=== PATIENT | male | born 1965 | race Caucasian/White ===

== ENCOUNTER → 2020-02-28 08:50 | Outpatient (BNVA) | payer OTHER, SELFPAY | PROVIDERS: Referring Provider Family Medicine; Visit Provider Registered Nurse | DX: J44.9 Chronic obstructive pulmonary disease, unspecified (principal); R73.9 Hyperglycemia, unspecified | CPT/HCPCS: 80053; 80061; 83721; 85025 ==

== ENCOUNTER 2020-04-12 08:35 | Outpatient (CLI) | payer OTHER, SELFPAY ==
--- NOTE | 2020-04-12 08:45 | XR_ITS ---
WS: [id number] EXAM: Chest: PA and lateral DATE OF EXAMINATION: 04/12/2020, 0939 hours COMPARISON: None. HISTORY: Patient is 54 years old with shortness of breath. History of coronary artery disease with 4 stents.. FINDINGS: The heart size is normal. The mediastinal contours are normal. Pulmonary vascularity is within norm al limits. Chronic lung changes seen. Small amount of apical capping and fibrosis in both upper lung zones with what appears to be slight bleb formation. Coarse markings are seen within both lungs. Lung s are clear of consolidation. Calcified granuloma right upper lobe. No effusion, or pneumothorax. Bernardino ne density is decreased. XR/XR chest 2V* [id number] IMPRESSION: CHRONIC LUNG CHANGES. NO ACUTE PULMONARY DISEASE.
[2020-04-12 09:10] VITALS: BMI 38.4
--- NOTE | 2020-04-12 09:49 | ECG_ITS ---
[facility] Test Date: 2020-04-12 Pat Name: Madi Alvarez Department: Room: Gender: Male Rosin Barrel Filler: : 1965 Requested By: Tri Arauz Order Number: [id number] Nolan MD: Tri Arauz M.D. Interpretive Statements NAME OF STUDY: EXERCISE SESTAMIBI STRESS TEST INDICATION: Coronary Artery Disease; Chest Pain Baseline blood pressure of 140/84 mmHg and heart rate of 80 bpm and oxygen saturation of 95%. EKG showed normal sinus rhythm, normal axis with normal ST-T wave changes. The patient exercised for 6 minutes 01 seconds on a standard Lance protocol. Patient attained a maximum heart rate of 144 beats per minute(85% of the maximum predicted heart rate) with a blood pressure at the peak exercise of 242/98 mm Hg and oxygen saturation of 90%. The EKG at the peak exercise revealed sinus tachycardia with no significant ST-T wave changes. Patient did not have any chest pain or any significant arrhythmias with the exercise. The procedure was terminated due to fatifue and SOB. Blood pressure at the end of the recovery phase was 137/84 mm Hg with a heart rate of 104 beats per minute and oxygen saturation of 93%. CONCLUSION: 1. Normal EKG response to treadmill exercise. 2. No exercise-induced chest pain or cardiac arrhythmia. 3. Baseline hypertension with hypertensive response to exercise. 4. Good exercise tolerance, attained a maximum of 7 METs.Maximum VO2 of 24.5 ml/kg/min. Electronically Signed On 04-12-2020 19:23:35 CDT by Tri Arauz M.D. [id number]
--- NOTE | 2020-04-12 09:49 | NMCV_ITS ---
NM noman perf SPECT r/s* [id number] Madi Alvarez Age: 54 Gender: M : 1965 Exam Date: 04/12/2020 10:05 Ordering Phys: Tri Arauz MD ([email or web address]) Technologist: MOLLY Mortensen Exam Location: [facility] Indications: CORONARY ARTERY DISEASE STRESS TEST Please see separate stress test report in [facility] for full findings IMAGE PROTOCOL Rest/Stress 1 Radiopharmaceutical Dose (mCi) Administration Site Administered by Rest: Tc-99m 10.7 IV MOLLY Tran Sestamibi Stress:Tc-99m 32.4 IV MOLLY Tran Sestamibi Rest: 12-Apr-2020 60 Discovery 630 Stress: 12-Apr-2020 15 Discovery 630 Radiopharmaceutical was injected at 85 % maximum heart rate. Images obtained in supine and prone position. SPECT RESULTS Technical Quality: Excellent Raw Data Analysis: Normal Image Corrections: No attenuation or motion correction applied Summed Stress Score: 0 Summed Rest Score: 0 Summed Difference Score: 0 PERFUSION FINDINGS Small sized perfusion abnormality of mild severity of mid to apical inferior rios with improved tracer uptake on stress images. This is likely suggestive of attenuation artifact. FUNCTIONAL RESULTS (calculated via Gated SPECT) Stress Image LV EF (%): 71 Stress EDV (mL):93 TID: 0.9 Stress ESV (mL):27 FUNCTIONAL FINDINGS: The left ventricle is normal in size. Transient Ischemia Dilatation of 0.9. There is normal left ventricular systolic function. The left ventricular ejection fraction is normal with a value of 71%. There is normal left ventricular wall thickening. Normal end diastolic and end systolic volumes. IMPRESSIONS 1. Myocardial perfusion imaging is normal. 2. Overall left ventricular systolic function is normal without regional wall motion abnormalities. 3. The left ventricular ejection fraction is normal with a value of 71%. 4. No prior similar studies to compare. Tri Arauz MD (Electronically Signed) Final Date: 12 April 2020 23:15 S
--- NOTE | 2020-04-12 10:44 | SUR.PREOP ---
Patient reports no pain or discomfort prior to the start of the procedure.
[2020-04-12 11:34] VITALS: BP 137/84; PULSE 104
--- NOTE | 2020-04-12 15:00 | USCV_ITS ---
Madi Alvarez Age: 54 Gender: M : 1965 Exam Date: 04/12/2020 09:16 Ordering Phys: Tri Arauz MD ([email or web address]) Technologist: Bessy Miranda Exam Location: [facility] [place] Indication: Chest pain BP: / HR: 82 Rhythm: Sinus Technical Quality: Adequate MEASUREMENTS (Male / Female) Normal Values 2D ECHO LV Diastolic Diameter PLAX 4.8 cm 4.2 - 5.9 / 3.9 - 5.3 cm LV Systolic Diameter PLAX 2.9 cm LV Chamber Size 3.2 cm IVS Diastolic Thickness 0.9 cm 0.6 - 1.0 / 0.6 - 0.9 cm IVS Systolic Thickness 2.1 cm LVPW Diastolic Thickness 1.2 cm 0.6 - 1.0 / 0.6 - 0.9 cm LVPW Systolic Thickness 1.6 cm RV Chamber Size 3.0 cm LVOT Diameter 2.0 cm LV Ejection Fraction 2D Teich 69.3 % LV Ejection Fraction MOD 2C 59.6 % LV Ejection Fraction 2C AL 62.1 % LA Diameter 3.9 cm LA Width 2.8 cm LA Height 3.5 cm RA Width 2.6 cm RA Height 3.1 cm Aorta at Sinotubular Diameter 3.1 cm M-MODE LV Diastolic Diameter MM 4.9 cm 4.2 - 5.9 / 3.9 - 5.3 cm LV Systolic Diameter MM 2.9 cm LV Ejection Fraction MM Teich 72.1 % IVS Diastolic Thickness MM 1.1 cm 0.6 - 1.0 / 0.6 - 0.9 cm IVS Systolic Thickness MM 1.6 cm LVPW Diastolic Thickness MM 1.4 cm 0.6 - 1.0 / 0.6 - 0.9 cm LVPW Systolic Thickness MM 1.6 cm RV Diastolic Diameter MM 1.6 cm Aortic Annulus Diameter 3.4 cm LA Ao Ratio MM 1.1 MV E Point Septal Separation 0.6 cm DOPPLER AV Peak Velocity 113.0 cm/s LVOT Peak Velocity 85.0 cm/s AV Area Cont Eq vti 3.1 cm squared AV Area Cont Eq pk 2.4 cm squared MV Area PHT 5.0 cm squared Mitral E to A Ratio 1.0 MV E' Velocity 8.0 cm/s Mitral E to MV E' Ratio 9.7 Mitral E to LV E' Lateral Ratio 10.0 Mitral E to LV E' Septal Ratio 9.5 TR Peak Velocity 100.9 cm/s TR Peak Gradient 4.1 mmHg TR Mean Velocity 62.8 cm/s TR Mean Gradient 1.8 mmHg TR Velocity Time Integral 21.2 cm TV Peak E Velocity 63.0 cm/s Right Atrial Pressure 3.0 mmHg Pulmonary Artery Systolic Pressu 7.1 mmHg PV Peak Velocity 54.0 cm/s RV Acceleration Time 0.2 s RV Ejection Time 0.3 s RV AcT/ET 0.5 FINDINGS Left Ventricle Normal left ventricular size, systolic function and wall thickness, with no regional wall motion abnormalities. Left ventricular ejection fraction is estimated at 60 %. Normal diastolic function. Right Ventricle Normal right ventricular size and systolic function. Right ventricular systolic pressure 7.1 mmHg. Right Atrium Normal right atrial size. Left Atrium Normal left atrial size. Mitral Valve Structurally normal mitral valve. No mitral valve stenosis. Trace mitral valve regurgitation. Aortic Valve Structurally normal trileaflet aortic valve. No aortic valve stenosis. No aortic valve regurgitation. Tricuspid Valve Structurally normal tricuspid valve. Trace tricuspid valve regurgitation. Pulmonic Valve Pulmonic valve not well visualized. Trace pulmonary valve regurgitation. Pericardium No pericardial effusion. Aorta Normal size aortic root and proximal ascending aorta. CONCLUSIONS 1. Normal left ventricular size, systolic function and wall thickness, with no regional wall motion abnormalities. Left ventricular ejection fraction is estimated at 60 %. Normal diastolic function. 2. Normal pulmonary artery pressure. 3. No significant valvular abnormality. 4. No prior similar studies to compare. Tri Arauz MD (Electronically Signed) Final Date: 12 April 2020 22:42 S
== END 2020-04-12 08:36 | disposition home or self-care (01) ==
LOC: RAD 08:47 → CARD 09:09 → CDL 09:10
PROVIDERS: PCP Internal Medicine Cardiovascular Disease; Visit Provider Internal Medicine Cardiovascular Disease
DX: I25.10 Atherosclerotic heart disease of native coronary artery without angina pectoris (principal); R06.02 Shortness of breath; R07.9 Chest pain, unspecified
CPT/HCPCS: 71046; 78452; 93017; 93306; A9500

== ENCOUNTER 2020-04-24 10:48 | Outpatient (CLI) | payer OTHER, SELFPAY ==
--- NOTE | 2020-04-24 15:15 | CT_ITS ---
WS: [id number] CT HEAD TECHNIQUE: Noncontrast CT of the head obtained from the skullbase to the vertex. CLINICAL INFORMATION: persistent, worsening headache and syncope COMPARISON: None. DLP: 992.[address] scans at [facility] use at least one of these dose optimization techniques: automat ed exposure control; mA and/or kV adjustment per patient size (includes targeted exams where dose is matched to clinical indication); or iterative reconstruction. FINDINGS: No evidence of intracranial hemorrhage or mass effect. Ventricular system and basal cisterns are hugo nt. Mild small vessel changes with moderate parenchymal volume loss. Chronic lacunar infarct right ba oneil ganglia. No extra-axial fluid collections. No evidence of mass or mass effect. Normal vega-white differentiation. Paranasal sinuses and mastoid air cells are well aerated. .Normal visualized soft tissues. CT/CT head wo con* [id number] IMPRESSION: 1. No evidence of intracranial hemorrhage or mass effect. 2. Mild small vessel changes. Moderate parenchymal volume loss. 3. Chronic lacunar infarct right basal ganglia. 4. No acute intracranial findings.
== END 2020-04-24 10:49 | disposition home or self-care (01) ==
PROVIDERS: PCP Internal Medicine Cardiovascular Disease; Visit Provider Registered Nurse
DX: R51 Headache (principal); R55 Syncope and collapse; I63.81 Other cerebral infarction due to occlusion or stenosis of small artery
CPT/HCPCS: 70450

== ENCOUNTER → 2020-05-15 08:24 | Outpatient (BNVA) | payer OTHER, SELFPAY | PROVIDERS: PCP Internal Medicine Cardiovascular Disease; Referring Provider Registered Nurse; Visit Provider Specialist | DX: R55 Syncope and collapse (principal); G43.711 Chronic migraine without aura, intractable, with status migrainosus; R05 Cough; F17.210 Nicotine dependence, cigarettes, uncomplicated | CPT/HCPCS: 99204 ==

== ENCOUNTER 2020-05-29 12:22 | Outpatient (CLI) | payer OTHER, SELFPAY ==
--- NOTE | 2020-05-29 13:00 | CT_ITS ---
WS: [id number] CT scan of the chest without IV contrast, additional two-dimensional coronal and sagittal reconstruct ion was performed. 05/29/2020 Clinical Data: COPD, emphysema Comparison: CT chest, 10/05/2018. DLP: 992.[address] scans at [facility] use at least one of these dose optimization techniques: automat ed exposure control; mA and/or kV adjustment per patient size (includes targeted exams where dose is matched to clinical indication); or iterative reconstruction. Findings: Bilateral upper lobe emphysematous blebs are seen. No nodules, masses or effusions are seen. The heart size is normal with no pericardial effusion. Card iac stents are in position. The pulmonary arterial system and thoracic aorta demonstrate no abnormali ties or dilatations. The trachea bifurcates normally into the bronchi. There is no axillary or signif icant mediastinal adenopathy. Right hilar adenopathy has not changed. The upper abdomen shows fatty infiltration of the liver and hepatomegaly unchanged. The remainder of the upper abdomen is unremarkable. CT/CT chest wo con [id number] Impression: 1. No change in bilateral upper lobe emphysematous blebs. 2. No change in right hilar adenopathy.
== END 2020-05-29 12:23 | disposition home or self-care (01) ==
LOC: RADWPI 12:26
PROVIDERS: PCP Internal Medicine Cardiovascular Disease; Visit Provider Internal Medicine Cardiovascular Disease
DX: J44.9 Chronic obstructive pulmonary disease, unspecified (principal); R55 Syncope and collapse; R05 Cough; F17.210 Nicotine dependence, cigarettes, uncomplicated
CPT/HCPCS: 71250; 95816

== ENCOUNTER → 2020-06-08 14:42 | Outpatient (BNVA) | payer OTHER, SELFPAY | PROVIDERS: PCP Internal Medicine Cardiovascular Disease; Visit Provider Internal Medicine Cardiovascular Disease | DX: Z11.59 Encounter for screening for other viral diseases (principal) | CPT/HCPCS: 87635 ==

== ENCOUNTER 2020-06-13 08:00 | Outpatient (CLI) | payer OTHER, SELFPAY ==
[2020-06-13 09:48] VITALS: BP 153/93
--- NOTE | 2020-06-13 12:55 | PFTS_ITS ---
Date of Study:06/13/20 Date of Dictation: 06/15/2020 MECHANICS: Forced vital capacity (FVC) is normal Forced expiratory volume in one second (FEV1) is reduced FEV1/FVC is reduced No significant response to bronchodilators FLOW VOLUME LOOP: Scooping of expiratory limb suggestive of small airway obstruction . LUNG VOLUMES: Total lung capacity (TLC) is normal. Residual volume (RV) is increased indicating air trapping DIFFUSING CAPACITY FOR CARBON MONOXIDE: moderate gas transfer defect . INTERPRETATION: The pulmonary function tests are consistent with obstructive ventilatory defect and moderate christa transfer defect. Lung volumes suggestive of air trapping. please correlate clinically. MTDD
== END 2020-06-13 08:01 | disposition home or self-care (01) ==
LOC: RT 08:01
PROVIDERS: PCP Internal Medicine Cardiovascular Disease; Visit Provider Internal Medicine Cardiovascular Disease
DX: J44.9 Chronic obstructive pulmonary disease, unspecified (principal); R06.00 Dyspnea, unspecified
CPT/HCPCS: 94060; 94618; 94726; 94729; J7611

== ENCOUNTER 2020-06-16 12:17 | Outpatient (CLI) | payer OTHER, SELFPAY ==
--- NOTE | 2020-06-16 12:45 | USCV_ITS ---
Madi Alvarez Age: 54 Gender: M : 1965 Exam Date: 06/16/2020 12:19 Ordering Phys: Tri Arauz MD ([email or web address]) Technologist: Franklyn Stout Exam Location: [facility] [place] Indication: PAD ULCER RIGHT LEFT Brachial 130.00 mmHg Brachial 131.00 mmHg Pressure (mmHg) Waveform Pressure (mmHg) Waveform 156.00 RESEARCH ANIMAL ATTENDANT 154.00 136.00 DPA 129.00 1.10 Ankle/Brachial Index 1.10 0.86 Post-Exercise Ankle Brachial Index 0.85 103.00 Pre-Exercise Toe Pressure 101.00 0.79 Pre-Exercise Toe/Brachial Index 0.77 FINDINGS Normal resting ABIs bilaterally Slightly diminished post exercise ABIs bilaterally Normal resting TBI's bilaterally CONCLUSIONS Slightly diminished post exercise ABIs bilaterally, suggestive of mild peripheral artery disease. Dr Sarah Maldonado MD FAC (Electronically Signed) Final Date: 16 June 2020 16:20 S
== END 2020-06-16 12:18 | disposition home or self-care (01) ==
LOC: RAD 12:25
PROVIDERS: PCP Internal Medicine Cardiovascular Disease; Visit Provider Internal Medicine Cardiovascular Disease
DX: I73.9 Peripheral vascular disease, unspecified (principal)
CPT/HCPCS: 93923

== ENCOUNTER 2020-06-18 23:16 | Emergency (ER) | payer OTHER, SELFPAY ==
[2020-06-18 23:31] VITALS: BP 132/87; PULSE 117; RESP 26; O2SAT 94; BMI 38.4
[2020-06-19] VITALS (8 sets, daily range): BP systolic 117–160; BP diastolic 68–94; PULSE 92–122; RESP 18–26; TEMP 36.6; O2SAT 88–94
--- NOTE | 2020-06-19 00:05 | XR_ITS ---
WS: [id number] PORTABLE CHEST HISTORY: r sided flank pain COMPARISON: 04/12/2020 Mild pulmonary hyperexpansion with emphysema. Benign granuloma RIGHT upper lobe. Linear subsegmental atelectasis at the RIGHT lung base. No pleural effusion or pneumothorax. Cardiac size: Normal. Mediastinum/Aorta: Normal mediastinum. No osseous abnormality seen. XR/XR chest 1V portable [id number] IMPRESSION: Chronic emphysema.
--- NOTE | 2020-06-19 00:07 | CTR_ITS ---
PROCEDURE INFORMATION: Exam: CT Angiography Chest With Contrast Exam date and time: 06/19/2020 12:32 AM Age: 54 years old Clinical indication: Abdominal pain; Right-sided chest pain; Prior surgery; Surgery date: 6+ months; Surgery type: Kidney repair; Patient HX: C/O R flank pain after twisting motion TECHNIQUE: Imaging protocol: Computed tomographic angiography of the chest with intravenous contrast. 3D rendering (Not supervised by radiologist): MIP and/or 3D reconstructed images were created by the technologist. Radiation optimization: All CT scans at this facility use at least one of these dose optimization techniques: automated exposure control; mA and/or kV adjustment per patient size (includes targeted exams where dose is matched to clinical indication); or iterative reconstruction. Contrast material: OMNI 350; Contrast volume: 95 ml; Contrast route: INTRAVENOUS (IV); COMPARISON: CT chest wo con [id number] 05/29/2020 12:43 PM RADIATION DOSE METRICS: Total DLP (mGy-cm): 2099.39 FINDINGS: Pulmonary arteries: The pulmonary arteries are adequately opacified for evaluation to the subsegmental level. There is no filling defect to suggest embolism. Aorta: The aorta is unremarkable. There is no aneurysm. Lungs: There is a benign calcified granuloma in the right upper lobe. There is moderate centrilobular and paraseptal emphysema. No pulmonary consolidation. Pleural space: There is no pleural effusion or pneumothorax. Heart: Heart size is normal. There is moderate coronary artery calcification. There is no pericardial effusion. Lymph nodes: There is no mediastinal or hilar lymphadenopathy. Bones/joints: Bones are unremarkable. Soft tissues: The extrathoracic soft tissues are unremarkable. IMPRESSION: 1. No pulmonary embolism. 2. No acute pulmonary findings. There is moderate severity centrilobular and paraseptal emphysema. PROCEDURE INFORMATION: Exam: CT Abdomen And Pelvis With Contrast Exam date and time: 06/19/2020 12:32 AM Age: 54 years old Clinical indication: Abdominal pain; Right-sided chest pain; Prior surgery; Surgery date: 6+ months; Surgery type: Kidney repair; Patient HX: C/O R flank pain after twisting motion TECHNIQUE: Imaging protocol: Computed tomography of the abdomen and pelvis with intravenous contrast. Radiation optimization: All CT scans at this facility use at least one of these dose optimization techniques: automated exposure control; mA and/or kV adjustment per patient size (includes targeted exams where dose is matched to clinical indication); or iterative reconstruction. Contrast material: OMNI 350; Contrast volume: 95 ml; Contrast route: INTRAVENOUS (IV); COMPARISON: CT chest con [id number] 05/29/2020 12:43 PM RADIATION DOSE METRICS: Total DLP (mGy-cm): 2099.39 FINDINGS: Liver: There is diffuse low-attenuation of the liver relative to the spleen consistent with fatty infiltration. There is no focal liver abnormality. Gallbladder and bile ducts: The gallbladder is normal. There is no biliary dilation. Pancreas: The pancreas is unremarkable. Spleen: The spleen is unremarkable. Adrenals: There is hypertrophy of the left adrenal gland. The right adrenal gland is unremarkable. 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 The lower pole lies partially anterior to Gerota fascia. There is no abnormal enhancement. No hydronephrosis or stones. The left kidney and ureter are unremarkable. Stomach and bowel: The stomach is unremarkable. The small bowel is nondilated. The colon is unremarkable. Appendix: The appendix is normal. Intraperitoneal space: There is no free air or significant intraperitoneal free fluid. Vasculature: There is mild aortic atherosclerotic disease. There is focal saccular ectasia of the distal aorta measuring up to 2.6 cm. No fanny aneurysm. Lymph nodes: There is no lymphadenopathy in the retroperitoneum, mesentery, pelvis or inguinal regions. Urinary bladder: The urinary bladder is unremarkable. Reproductive: The prostate and seminal vesicles are unremarkable. Bones/joints: Unremarkable. No acute fracture. Soft tissues: The abdominal wall is intact. CT/CT angio chest w abd pel w con IMPRESSION: 1. No definite acute findings. 2. 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 There is no sign of inflammation or infarction. This finding is likely related to prior surgery and is of uncertain clinical significance. Prior abdominal imaging is not available at this time, but would be helpful if it could be obtained. 3. Incidental findings above. Radiation Dose CTDIVOL = (mGy): DLP = 2099.39~2099.39 (mGy-cm)
[2020-06-19] MEDS: ondansetron 2 mg/ML SDV 2 mL 4 MG IVP (00:25)
[2020-06-19] MEDS: HYDROmorphone 1 mg/mL INJ 1 mL IVP ×2 (00:26→05:31)
[2020-06-19 00:36] LABS: Basophils # 0.1 10^3/uL (0.0-0.1); Eosinophils # 0.3 10^3/uL (0.0-0.8); Eosinophils % 3.5 %; Hematocrit 48.2 % (42.0-52.0); Hemoglobin 15.8 g/dL (11.7-16.6); Lymphocytes # 2.4 10^3/uL (0.8-4.8); Lymphocytes % 26.4 %; Mean Corpuscular HGB Conc 32.8 g/dL (30.0-36.0); Mean Corpuscular Hemoglobin 33.1 pg (28.0-34.0); Mean Platelet Volume 9.9 fL (7.4-10.4); Monocytes # 0.7 10^3/uL (0.2-0.9); Monocytes % 8.2 %; Neutrophils # 5.34 10^3/uL (1.8-7.7); Nucleated Red Blood Cells % 0 %; Platelet Count 252 10^3/cmm (130-400); Red Blood Count 4.77 10^6/uL (4.1-5.3); Red Cell Distribution Width 12.6 % (12.1-15.1); White Blood Count 8.9 10^3/uL (4.0-10.0)
[2020-06-19 00:40] LABS: D Dimer 2.82 ug/mIFEU (0-0.59)
[2020-06-19 00:42] LABS: Alanine Aminotransferase 85 U/L (0-41); Albumin Level 4.2 g/dL (3.5-5.2); Alkaline Phosphatase 94 IU/L (40-130); Aspartate Amino Transferase 45 U/L (0-40); Blood Urea Nitrogen 9 mg/dL (6-20); Calcium 10.1 mg/dL (8.5-10.5); Carbon Dioxide 25 mmol/L (22-29); Chloride 99 mmol/L (98-107); Creatine Phosphokinase 231 U/L (39-308); Globulin 3.5 g/dL (1.3-4.6); Glomerular Filtration Rate 78.5 mL/min (90-130); Glucose 166 mg/dL (65-115); Lactate (Lactic Acid level) 3.1 mmol/L (0.5-2.2); Osmolality Calculated 282 mOsm/kg (285-295); Sodium 135 mmol/L (136-145); Total Bilirubin 0.2 mg/dL (0.15-1.2); Total Protein 7.7 g/dL (6.6-8.7)
[2020-06-19] MEDS: iohexol 350 mg/mL 100 mL Btl IV (00:46)
[2020-06-19 00:48] LABS: Anion Gap 15.5 (5-19); Potassium 4.5 mmol/L (3.5-5.1)
--- NOTE | 2020-06-19 01:19 | W.ED.BACK ---
HPI - Back Pain/Injury General: Chief Complaint: Back Pain/Injury Stated Complaint: back pain Time Seen by Provider: 06/18/20 23:44 History of Present Illness: HPI Narrative: 54-year-old gentleman presents with right-sided back and right flank pain worsening over the past couple of days. He has had a cough as well. No fever. He has a history of COPD. He was tested for Covid last week, and it was negative. He notes the pain became acutely worse this evening, and he was not able to control it at home. Pertinent past history: prior back pain Onset (ago): day(s) Timing: constant and progressively worsening Severity: moderate Associated symptoms: Reports nausea; Deny abdominal pain, dysuria, fever(s), hematuria or vomiting Review of Systems Const: Denies: fever(s) Eyes: Denies: change in vision ENMT: Denies: odynophagia or sinus pain Card: Denies: chest pain, palpitations or irregular heart rhythm Resp: Reports: dyspnea and non-productive cough; Denies: productive cough or wheezing GI: Reports: nausea; Denies: abdominal pain or vomiting : Denies: difficulty urinating, dysuria or hematuria Musc: Reports: back pain; Denies: neck pain or joint warmth Skin/Breast: Denies: rash or erythema Neuro: Denies: headache(s), dizziness or vertigo Psych: Denies: anxiety PFSH ED PFSH: Medical History (Updated 06/19/20 @ 05:31 by Quique Mason DO) COPD (chronic obstructive pulmonary disease) Emphysema of lung Essential hypertension Past heart attack Surgical History History of kidney surgery Hx of heart artery stent Family History Other COPD (chronic obstructive pulmonary disease) Diabetes Heart problem Social History (Updated 06/01/20 @ 10:11 by Sai Mota LPN) Smoking and tobacco status: current every day smoker cigarettes Packs smoked per day: 2 Years cigarettes smoked: 40 Quit status (tobacco): considering quitting Second hand smoke exposure: Yes Smoking risk assessment/counseling performed?: Yes Alcohol intake: former Desire information about alcohol rehabilitation?: No Counseling given: No Desire information about substance/drug rehabilitation?: No Counseling given: No Lives independently: Yes Household members: significant other and children Housing: House Marital status: Life Partner service: No Current occupational status: employed and previously employed 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 History of recent travel: No Current gender identity: Female Physical Exam Const: GENERAL APPEARANCE: well developed and ill appearing ORIENTATION/CONSCIOUSNESS: Yes oriented to person, Yes oriented to place and Yes oriented to time HENMT: COMMON NORMALS: normocephalic, external ears normal and Normal external nose present HEAD & SCALP: normocephalic FACE & SINUS: normal facial exam NOSE: Normal external nose present and No nasal discharge present EXTERNAL EAR: Yes external ears normal Eye: COMMON NORMALS: Equal, round and reactive pupils present, EOMs intact bilaterally and conjunctivae normal EYELID: eyelids normal CONJUNCTIVA: Yes conjunctivae normal PUPIL: Yes Equal, round and reactive pupils present Neck/C-Spine: GENERAL: No tracheal deviation Chest: COMMONS NORMALS: normal inspection of the chest CHEST: No tenderness Resp: COMMON NORMALS: clear to auscultation bilaterally EFFORT & INSPECTION: No tachypneic, No respiratory distress, No retractions, No uses accessory muscles and No tracheal deviation AUSCULTATION: clear to auscultation bilaterally, no rhonchi, no wheezes and lung sounds not diminished Cardio: COMMON NORMALS: regular rate and regular rhythm RATE: regular rate RHYTHM: regular rhythm HEART SOUNDS: no murmurs PERIPHERAL PULSES: radial pulses present GI: INSPECTION: No abdominal distension AUSCULTATION: No Hyperactive bowel sounds present and No Hypoactive bowel sounds present PALPATION: No Guarding due to palpation present (GI) and No Rigid due to palpation PERCUSSION: no dullness to percussion and no tympanic to percussion : BLADDER/KIDNEY EXAM: Yes CVA tenderness on the right Back/Pelvis: GENERAL BACK: Yes CVA tenderness Neuro: SENSORIUM/ORIENTATION: Yes oriented to person, Yes oriented to place and Yes oriented to time Psych: COMMON NORMALS: mental status grossly normal Skin: COMMON NORMALS: no rashes or lesions noted GENERAL SKIN EXAM: no rashes or lesions noted Course Vital Signs: Vital signs: Vital Signs Pulse Rate 98 06/19/20 05:00 Respiratory Rate 20 H 06/19/20 05:00 Blood Pressure 117/83 06/19/20 05:00 Pulse Oximetry 93 06/19/20 05:00 MDM - Back Pain/Injury MDM Narrative: Medical decision making narrative: 54-year-old male with flank pain. On further interview, found out that he had a lacerated kidney on the right side a couple of years ago and had surgery. His D-dimer was significantly elevated. EKG was a normal sinus rhythm without acute ST change. Troponin was negative. His pain was reproducible. Because of his history, and his elevated D-dimer, CTA of the chest was ordered with follow-through with abdomen and pelvis. There were no acute findings on either. His pain may be musculoskeletal. There is 1/9 rib fracture on the right, but it does appear old on CT. We will treat his pain, close outpatient follow-up. His urinalysis was also negative. Lab Data: Labs: Lab Results 06/19/20 06/19/20 06/19/20 Range/Units 00:15 00:15 00:15 WBC 8.9 (4.0-10.0) 10^3/ uL RBC 4.77 (4.1-5.3) 10^6/u L Hgb 15.8 (11.7-16.6) g/dL Hct 48.2 (42.0-52.0) % MCV 101.0 H (80-94) fL MCH 33.1 (28.0-34.0) pg MCHC 32.8 (30.0-36.0) g/dL RDW 12.6 (12.1-15.1) % Plt Count 252 (130-400) 10^3/c mm MPV 9.9 (7.4-10.4) fL Neut % (Auto) 60.0 % Lymph % (Auto) 26.4 % [place] % (Auto) 8.2 % Eos % (Auto) 3.5 % Baso % (Auto) 1.0 % Neut # (Auto) 5.34 (1.8-7.7) 10^3/u L Lymph # (Auto) 2.4 (0.8-4.8) 10^3/u L [place] # (Auto) 0.7 (0.2-0.9) 10^3/u L Eos # (Auto) 0.3 (0.0-0.8) 10^3/u L Baso # (Auto) 0.1 (0.0-0.1) 10^3/u L Nucleated RBC % (a uto) 0 % Nucleated RBCs # 0.0 /100WBC D-Dimer 2.82 H (0-0.59) ug/mIFE U Sodium 135 L (136-145) mmol/L Potassium 4.5 (3.5-5.1) mmol/L Chloride 99 (98-107) mmol/L Carbon Dioxide 25 (22-29) mmol/L Anion Gap 15.5 (5-19) BUN 9 (6-20) mg/dL Creatinine 1.0 (0.7-1.2) mg/dL GFR Calculation 78.5 L (90-130) mL/min Glucose 166 H (65-115) mg/dL Calculated Osmolal ity 282 L (285-295) mOsm/k g Lactate (0.5-2.2) mmol/L Calcium 10.1 (8.5-10.5) mg/dL Total Bilirubin 0.2 (0.15-1.2) mg/dL AST 45 H (0-40) U/L ALT 85 H (0-41) U/L Alkaline Phosphata se 94 (40-130) IU/L Creatine Kinase 231 (39-308) U/L Troponin T Gen 5 n g/L (0-15) ng/L C-Reactive Protein (0.0-4.9) mg/L Total Protein 7.7 (6.6-8.7) g/dL Albumin 4.2 (3.5-5.2) g/dL Globulin 3.5 (1.3-4.6) g/dL Urine Color (Yellow) Urine Appearance (CLEAR) Urine pH (5-7) Ur Specific Gravit y (1.005-1.030) Urine Protein (Negative) Urine Glucose (UA) (Normal) Urine Ketones (Negative) Urine Blood (Negative) Urine Nitrate (Negative) Urine Bilirubin (Negative) Urine Urobilinogen (Negative) mg/dL Ur Leukocyte Yesica ase (Negative) Amorphous Sediment 06/19/20 06/19/20 06/19/20 Range/Units 00:15 00:15 04:45 WBC (4.0-10.0) 10^3/ uL RBC (4.1-5.3) 10^6/u L Hgb (11.7-16.6) g/dL Hct (42.0-52.0) % MCV (80-94) fL MCH (28.0-34.0) pg MCHC (30.0-36.0) g/dL RDW (12.1-15.1) % Plt Count (130-400) 10^3/c mm MPV (7.4-10.4) fL Neut % (Auto) % Lymph % (Auto) % [place] % (Auto) % Eos % (Auto) % Baso % (Auto) % Neut # (Auto) (1.8-7.7) 10^3/u L Lymph # (Auto) (0.8-4.8) 10^3/u L [place] # (Auto) (0.2-0.9) 10^3/u L Eos # (Auto) (0.0-0.8) 10^3/u L Baso # (Auto) (0.0-0.1) 10^3/u L Nucleated RBC % (a uto) % Nucleated RBCs # /100WBC D-Dimer (0-0.59) ug/mIFE U Sodium (136-145) mmol/L Potassium (3.5-5.1) mmol/L Chloride (98-107) mmol/L Carbon Dioxide (22-29) mmol/L Anion Gap (5-19) BUN (6-20) mg/dL Creatinine (0.7-1.2) mg/dL GFR Calculation (90-130) mL/min Glucose (65-115) mg/dL Calculated Osmolal ity (285-295) mOsm/k g Lactate 3.1 H (0.5-2.2) mmol/L Calcium (8.5-10.5) mg/dL Total Bilirubin (0.15-1.2) mg/dL AST (0-40) U/L ALT (0-41) U/L Alkaline Phosphata se (40-130) IU/L Creatine Kinase (39-308) U/L Troponin T Gen 5 n g/L 15 (0-15) ng/L C-Reactive Protein (0.0-4.9) mg/L Total Protein (6.6-8.7) g/dL Albumin (3.5-5.2) g/dL Globulin (1.3-4.6) g/dL Urine Color Yellow (Yellow) Urine Appearance Clear (CLEAR) Urine pH 5 (5-7) Ur Specific Gravit y 1.015 (1.005-1.030) Urine Protein Trace (Negative) Urine Glucose (UA) Trace H (Normal) Urine Ketones Negative (Negative) Urine Blood Neg (Negative) Urine Nitrate Negative (Negative) Urine Bilirubin Neg (Negative) Urine Urobilinogen Norm (Negative) mg/dL Ur Leukocyte Yesica ase Negative (Negative) Amorphous Sediment Not Reportable Discharge Plan Discharge Patient Disposition: Home Clinical Impression: Acute flank pain Condition: Stable Prescriptions: New Percocet 7.5-325 mg tablet 1 tab PO Q6H PRN (Reason: pain) Qty: 10 RF: 0 No Action losartan 50 mg tablet 50 mg PO DAILY Qty: 30 RF: 3 pantoprazole 40 mg tablet,delayed release (DR/EC) 40 mg PO DAILY Qty: 30 RF: 1 metoprolol tartrate 25 mg tablet 25 mg PO BID Qty: 60 RF: 3 amitriptyline 25 mg tablet 25 mg PO DAILY Qty: 30 RF: 3 Aimovig Autoinjector 140 mg/mL auto-injector 140 mg SUBCUT .MONTHLY Qty: 1 RF: 5 budesonide-formoterol [Symbicort] 160-4.5 mcg/actuation HFA aerosol inhaler 2 puff INHALATION BID Qty: 10.2 RF: 3 montelukast 10 mg tablet 10 mg PO DAILY Qty: 90 RF: 3 Spiriva with HandiHaler 18 mcg capsule, w/inhalation device 2 cap INHALATION DAILY Qty: 1 RF: 3 albuterol sulfate [Ventolin HFA] 90 mcg/actuation HFA aerosol inhaler 2 puff INHALATION Q6H PRN (Reason: bronchospasm) Qty: 6.7 RF: 3 ipratropium-albuterol 0.5 mg-3 mg(2.5 mg base)/3 mL solution for nebulization 3 ml INHALATION Q4H PRN (Reason: wheezing) Qty: 15 RF: 3 prednisone 20 mg tablet 40 mg PO DAILY Qty: 10 RF: 0 budesonide [Pulmicort] 0.5 mg/2 mL suspension for nebulization 0.25 mg INHALATION BID Qty: 10 RF: 3 levofloxacin 500 mg tablet 500 mg PO DAILY Qty: 5 RF: 0 ibuprofen [Advil Liqui-Gel] 200 mg capsule 200 mg PO Q6H PRNRF: 0 nitroglycerin [Nitrostat] 0.4 mg tablet, sublingual 0.4 mg SUBLINGUAL Q5M PRNRF: 0 gabapentin 100 mg capsule 100 mg PO DAILY Qty: 90 RF: 0 clopidogrel [Plavix] 75 mg tablet 75 mg PO DAILY Qty: 90 RF: 0 atorvastatin 80 mg tablet 80 mg PO DAILY Qty: 90 RF: 0 Discharge Orders: Discharge Order (Routine); Ordered 06/19/20 Ordered By: Quique Mason Referrals: Juan Medina MD [Primary Care Provider] - 1-3 days Discharge Diet: Advance as tolerated Discharge Activity: Increase activity as tolerated Patient Instructions: Flank Pain (ED) Activity Restrictions/Additional Instructions: Return for fever greater than 100, worsening pain despite treatment, vomiting liquids or medications, other concerning symptoms. Coding Level of Care Code ED Spinning Bath Patroller for [place] Fwd Exam Comprehensive
--- NOTE | 2020-06-19 01:33 | PC.NURSE ---
placed on 2 L NC at 0105
--- NOTE | 2020-06-19 02:08 | ECG_ITS ---
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 Measurements Intervals [place] Rate: 105 P: 51 W[place]: 147 QRS: 66 QRSD: 98 T: 40 QT: 328 QTc: 434 Interpretive Statements SINUS TACHYCARDIA POSSIBLE LEFT ATRIAL ENLARGEMENT [-0.1mV P WAVE IN V1/V2] ABNORMAL RHYTHM ECG No previous ECG available for comparison Electronically Signed On 06-20-2020 7:20:36 CDT by Tri Arauz M.D. [id number]
[2020-06-19 02:29] LABS: Troponin T (5th) Once 15 ng/L (0-15)
[2020-06-19] MEDS: ketorolac 30 mg/mL INJ IVP (03:01)
[2020-06-19] MEDS: HYDROmorphone 1 mg/mL INJ 1 mL 0.5 MG IVP (03:01)
--- NOTE | 2020-06-19 03:38 | PC.NURSE ---
multiple attempts to obtain urine without success--patient refuses catheterization
--- NOTE | 2020-06-19 04:28 | PC.NURSE ---
0415 attempt to catheterize with 8 fr unsuccessful
--- NOTE | 2020-06-19 04:51 | PC.NURSE ---
Bladder scan 149 ml --16fr ugalde placed return 175 mls catheter removed-
[2020-06-19 04:58] LABS: Add Urine Microscopic? YES; Bilirubin Urine Neg (Negative); Blood Urine Neg (Negative); Glucose Urine UA Trace (Normal); Ketones Urine Negative (Negative); Leukocyte Esterase Urine Negative (Negative); Nitrate Urine Negative (Negative); Protein Urine Trace (Negative); Specific Gravity, Urine 1.015 (1.005-1.030); Urine Appearance Clear (CLEAR); Urine Color Yellow (Yellow); Urobilinogen Urine Norm (Negative); pH Urine 5 (5-7)
[2020-06-19 05:35] LABS: Add Urine Culture? No; Bacteria Urine TRACE /hpf; Mucus Urine 1+ /hpf; RBC Urine 0-4 /hpf (0-2); Squamous Epithelial Cell Urine 0-4 /hpf (0-5); WBC Urine 0-4 /hpf (0-5)
--- NOTE | 2020-06-19 05:35 | PC.NURSE ---
1 mg Dilaudid given for pain 04/03
== END 2020-06-19 05:50 | disposition home or self-care (01) ==
PROVIDERS: Emergency Provider Emergency Medicine; PCP Internal Medicine Cardiovascular Disease
DX: R10.9 Unspecified abdominal pain (principal); Z79.02 Long term (current) use of antithrombotics/antiplatelets; J43.9 Emphysema, unspecified; I10 Essential (primary) hypertension; F17.210 Nicotine dependence, cigarettes, uncomplicated
CPT/HCPCS: 12345; 71045; 71275; 74177; 80053; 81001; 82550; 83605; 84484; 85025; 85378; 86140; 93005; 96374; 96375; 96376; 99283; 99284; J1170; J1885; J2405; Q9967

== ENCOUNTER → 2020-07-12 08:10 | Outpatient (BNVA) | payer OTHER, SELFPAY | PROVIDERS: PCP Internal Medicine Cardiovascular Disease; Visit Provider Specialist | DX: G43.711 Chronic migraine without aura, intractable, with status migrainosus (principal); R05 Cough; I25.810 Atherosclerosis of coronary artery bypass graft(s) without angina pectoris; J44.9 Chronic obstructive pulmonary disease, unspecified; F17.210 Nicotine dependence, cigarettes, uncomplicated | CPT/HCPCS: 99214 ==

== ENCOUNTER → 2020-08-31 14:29 | Outpatient (BNVA) | payer OTHER, SELFPAY | PROVIDERS: PCP Internal Medicine Cardiovascular Disease; Visit Provider Registered Nurse | DX: B35.3 Tinea pedis (principal) | CPT/HCPCS: 88305 ==

== ENCOUNTER → 2020-09-05 09:46 | Outpatient (BNVA) | payer OTHER, SELFPAY | PROVIDERS: PCP Internal Medicine Cardiovascular Disease; Visit Provider Registered Nurse | DX: R81 Glycosuria (principal) | CPT/HCPCS: 80053; 83036 ==

== ENCOUNTER → 2020-09-13 09:52 | Outpatient (BNVA) | payer OTHER, SELFPAY | PROVIDERS: PCP Internal Medicine Cardiovascular Disease; Visit Provider Registered Nurse | DX: E11.9 Type 2 diabetes mellitus without complications (principal); L57.0 Actinic keratosis | CPT/HCPCS: 36416; 82962 ==

== ENCOUNTER → 2020-12-07 08:58 | Outpatient (BNVA) | payer OTHER, SELFPAY | PROVIDERS: PCP Internal Medicine Cardiovascular Disease; Visit Provider Registered Nurse | DX: I10 Essential (primary) hypertension (principal); E11.9 Type 2 diabetes mellitus without complications; E78.5 Hyperlipidemia, unspecified; I25.810 Atherosclerosis of coronary artery bypass graft(s) without angina pectoris; J44.9 Chronic obstructive pulmonary disease, unspecified; G47.33 Obstructive sleep apnea (adult) (pediatric); F17.210 Nicotine dependence, cigarettes, uncomplicated | CPT/HCPCS: 80053; 80061; 81003; 82043; 83036 ==

== ENCOUNTER 2021-04-21 03:54 | Inpatient (IN) | payer OTHER, SELFPAY ==
[2021-04-21] VITALS (45 sets, daily range): BP systolic 96–153; BP diastolic 62–103; PULSE 28–100; RESP 14–31; TEMP 36.7–37.1; O2SAT 88–99; BMI 38.4
--- NOTE | 2021-04-21 03:58 | XRR_ITS ---
PROCEDURE INFORMATION: Exam: XR Chest Exam date and time: 04/21/2021 3:58 AM Age: 55 years old Clinical indication: Chest pressure; Prior surgery; Surgery type: Coronary stent; Patient HX: Chest pain. History of prior mi and emphysema. ; Additional info: Cp TECHNIQUE: Imaging protocol: XR of the chest. Views: 1 view. COMPARISON: CR XR chest 1V portable [id number] 06/19/2020 12:31 AM FINDINGS: Lungs: Mild emphysema. Pleural spaces: Unremarkable. No pleural effusion. No pneumothorax. Heart/Mediastinum: Unremarkable. No cardiomegaly. Bones/joints: Unremarkable. XR/XR chest 1V portable [id number] IMPRESSION: 1. Mild emphysema. 2. No acute disease.
--- NOTE | 2021-04-21 03:59 | ECG_ITS ---
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 Measurements Intervals [place] Rate: 88 P: 66 NC: 151 QRS: 72 QRSD: 106 T: 67 QT: 391 QTc: 474 Interpretive Statements SINUS RHYTHM MINIMAL ST DEPRESSION [0.025+ mV ST DEPRESSION] Compared to ECG 06/19/2020 02:24:35 ST (T wave) deviation now present Sinus tachycardia no longer present Electronically Signed On 04-21-2021 22:03:58 CDT by Andrew Luong M.D. [id number]
[2021-04-21 04:32] LABS: Basophils # 0.1 10^3/uL (0.0-0.1); Basophils % 0.7 %; Eosinophils # 0.2 10^3/uL (0.0-0.8); Eosinophils % 2.7 %; Hematocrit 42.3 % (42.0-52.0); Lymphocytes # 2.3 10^3/uL (0.8-4.8); Lymphocytes % 26.7 %; Mean Corpuscular HGB Conc 33.1 g/dL (30.0-36.0); Mean Corpuscular Volume 99.8 fl (80-94); Mean Platelet Volume 10.1 fL (7.4-10.4); Monocytes # 0.7 10^3/uL (0.2-0.9); Monocytes % 8.3 %; Neutrophils # 5.35 10^3/uL (1.8-7.7); Neutrophils % 60.9 %; Nucleated Red Blood Cells % 0 %; Platelet Count 255 10^3/cmm (130-400); Red Blood Count 4.24 10^6/uL (4.1-5.3); Red Cell Distribution Width 12.5 % (12.1-15.1); White Blood Count 8.8 10^3/uL (4.0-10.0)
--- NOTE | 2021-04-21 04:34 | ED_ITS ---
HPI - Chest Pain General: Chief Complaint: Chest Pain Stated Complaint: CHEST PAIN Time Seen by Provider: 04/21/21 03:58 History of Present Illness: HPI narrative: 55-year-old male with a history of COPD and coronary disease. He notes a cough for several days. He started getting chest pain yesterday. It is worse with movement and cough. He has been wheezing. He denies fever. He is unvaccinated he states his feet have been swelling a little more than usual. MD complaint: chest pain Pertinent past history: coronary artery disease and other Onset (ago): day(s) Timing of current episode: constant and increasing Prior episodes: Yes Onset: during rest Pain location: substernal Pain radiation: back Severity: moderate Quality: heaviness and sharp Relieving factors: nothing Exacerbating factors: nothing Associated symptoms: Reports dyspnea, leg edema, nausea and vomiting; Deny abdominal pain, fever(s) or palpitations Treatment prior to arrival: aspirin and nitroglycerin Review of Systems Const: Denies: fever(s) Card: Denies: palpitations Resp: Reports: dyspnea GI: Reports: nausea and vomiting; Denies: abdominal pain PFSH ED PFSH: Medical History (Updated 04/21/21 @ 05:49 by Quique Mason DO) COPD (chronic obstructive pulmonary disease) Emphysema of lung Essential hypertension Past heart attack Surgical History History of kidney surgery Hx of heart artery stent Family History Other COPD (chronic obstructive pulmonary disease) Diabetes Heart problem Social History Smoking and tobacco status: current every day smoker cigarettes Packs smoked per day: 1.5 Years cigarettes smoked: 40 [ Other cigarette details: [id number] ] Quit status (tobacco): considering quitting Second hand smoke exposure: Yes Smoking risk assessment/counseling performed?: Yes Alcohol intake: former Desire information about substance/drug rehabilitation?: No Counseling given: No Lives independently: Yes Household members: significant other and children Housing: House Marital status: Life Partner service: No Current occupational status: previously employed 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 Pets and animals: Yes History of recent travel: No Current gender identity: Male Physical Exam Const: GENERAL APPEARANCE: in distress, anxious and ill appearing ORIENTATION/CONSCIOUSNESS: Yes awake, Yes oriented to person, Yes oriented to place and Yes oriented to time HENMT: COMMON NORMALS: normocephalic HEAD & SCALP: normocephalic Eye: COMMON NORMALS: Equal, round and reactive pupils present and EOMs intact bilaterally PUPIL: Yes Equal, round and reactive pupils present Chest: COMMONS NORMALS: normal inspection of the chest and normal inspection of the breasts CHEST: Yes tenderness Breast/axilla inspection: Yes normal inspection of the breasts Resp: EFFORT & INSPECTION: No able to speak in complete sentences, Yes tachypneic and Yes respiratory distress AUSCULTATION: abnormal I/E ratio, rhonchi and wheezes Cardio: COMMON NORMALS: regular rate, regular rhythm and Peripheral pulses 2+ throughout RATE: regular rate RHYTHM: regular rhythm PERIPHERAL PULSES: Peripheral pulses 2+ throughout GI: COMMON NORMALS: Normal to inspection, nondistended, normoactive bowel sounds present, Soft to palpation and non-tender PALPATION: Yes Soft to palpation Neuro: SENSORIUM/ORIENTATION: Yes oriented to person, Yes oriented to place and Yes oriented to time Course Consultations: Consultation #1: chu Time: 05:48 Vital Signs: Vital signs: Vital Signs Temperature 98.4 F 04/21/21 03:57 Pulse Rate 28 L 04/21/21 04:47 Respiratory Rate 24 H 04/21/21 04:47 Blood Pressure 125/79 04/21/21 04:47 Pulse Oximetry 96 04/21/21 04:47 MDM - Chest Pain MDM Narrative: Medical decision making narrative: 55-year-old male presents with chest pain and shortness of breath. He has a history of coronary disease. And some aspect of COPD as well, as he is wheezing on exam and has a cough. His COVID-19 rapid is negative. White blood cell count is 8.8. Hemoglobin 14. His creatinine is 0.7, and first troponin is 202. His chest x-ray is nonacute. This is likely an NSTEMI. He will be treated as such. Lab Data: Labs: Lab Results 04/21/21 04/21/21 04/21/21 Range/Units 03:18 03:18 03:18 WBC 8.8 (4.0-10.0) 10^3/ uL RBC 4.24 (4.1-5.3) 10^6/u L Hgb 14.0 (11.7-16.6) g/dL Hct 42.3 (42.0-52.0) % MCV 99.8 H (80-94) fl MCH 33.0 (28.0-34.0) pg MCHC 33.1 (30.0-36.0) g/dL RDW 12.5 (12.1-15.1) % Plt Count 255 (130-400) 10^3/c mm MPV 10.1 (7.4-10.4) fL Neut % (Auto) 60.9 % Lymph % (Auto) 26.7 % [place] % (Auto) 8.3 % Eos % (Auto) 2.7 % Baso % (Auto) 0.7 % Neut # (Auto) 5.35 (1.8-7.7) 10^3/u L Lymph # (Auto) 2.3 (0.8-4.8) 10^3/u L [place] # (Auto) 0.7 (0.2-0.9) 10^3/u L Eos # (Auto) 0.2 (0.0-0.8) 10^3/u L Baso # (Auto) 0.1 (0.0-0.1) 10^3/u L Nucleated RBC % (a uto) 0 % Nucleated RBCs # 0.0 /100WBC D-Dimer (0-0.59) ug/mIFE U Sodium 136 (136-145) mmol/L Potassium 3.9 (3.5-5.1) mmol/L Chloride 99 (98-107) mmol/L Carbon Dioxide 25 (22-29) mmol/L Anion Gap 15.9 (5-19) BUN 6 (6-20) mg/dL Creatinine 0.7 (0.7-1.2) mg/dL GFR Calculation 118.0 (90-130) mL/min Glucose 146 H (65-115) mg/dL Calculated Osmolal ity 282 L (285-295) mOsm/k g Lactate (0.5-2.2) mmol/L Calcium 8.3 L (8.5-10.5) mg/dL Total Bilirubin 0.3 (0.15-1.2) mg/dL AST 35 (0-40) U/L ALT 26 (0-41) U/L Alkaline Phosphata se 61 (40-130) IU/L Creatine Kinase 512 H* (39-308) U/L Troponin T Baselin e 202 H* (0-15) ng/L C-Reactive Protein 10.2 H (0.0-4.9) mg/L NT-Pro-B Natriuret Pep 323 H (0-125) pg/mL Total Protein 6.2 L (6.6-8.7) g/dL Albumin 3.8 (3.5-5.2) g/dL Globulin 2.4 (1.3-4.6) g/dL Procalcitonin 0.07 (0-0.5) ng/mL SARS-CoV-2 Ag (Rap id) (Negative) 04/21/21 04/21/21 04/21/21 Range/Units 04:42 04:42 04:43 WBC (4.0-10.0) 10^3/ uL RBC (4.1-5.3) 10^6/u L Hgb (11.7-16.6) g/dL Hct (42.0-52.0) % MCV (80-94) fl MCH (28.0-34.0) pg MCHC (30.0-36.0) g/dL RDW (12.1-15.1) % Plt Count (130-400) 10^3/c mm MPV (7.4-10.4) fL Neut % (Auto) % Lymph % (Auto) % [place] % (Auto) % Eos % (Auto) % Baso % (Auto) % Neut # (Auto) (1.8-7.7) 10^3/u L Lymph # (Auto) (0.8-4.8) 10^3/u L [place] # (Auto) (0.2-0.9) 10^3/u L Eos # (Auto) (0.0-0.8) 10^3/u L Baso # (Auto) (0.0-0.1) 10^3/u L Nucleated RBC % (a uto) % Nucleated RBCs # /100WBC D-Dimer 0.38 (0-0.59) ug/mIFE U Sodium (136-145) mmol/L Potassium (3.5-5.1) mmol/L Chloride (98-107) mmol/L Carbon Dioxide (22-29) mmol/L Anion Gap (5-19) BUN (6-20) mg/dL Creatinine (0.7-1.2) mg/dL GFR Calculation (90-130) mL/min Glucose (65-115) mg/dL Calculated Osmolal ity (285-295) mOsm/k g Lactate 2.9 H (0.5-2.2) mmol/L Calcium (8.5-10.5) mg/dL Total Bilirubin (0.15-1.2) mg/dL AST (0-40) U/L ALT (0-41) U/L Alkaline Phosphata se (40-130) IU/L Creatine Kinase (39-308) U/L Troponin T Baselin e (0-15) ng/L C-Reactive Protein (0.0-4.9) mg/L NT-Pro-B Natriuret Pep (0-125) pg/mL Total Protein (6.6-8.7) g/dL Albumin (3.5-5.2) g/dL Globulin (1.3-4.6) g/dL Procalcitonin (0-0.5) ng/mL SARS-CoV-2 Ag (Rap id) Negative (Negative) Discharge Plan Discharge Patient Disposition: Admitted As Inpatient Clinical Impression: Non-STEMI (non-ST elevated myocardial infarction) Chest pain Qualifiers: Chest pain type: unspecified Qualified Code(s): R07.9 - Chest pain, unspecified Condition: Stable Coding Level of Care Code ED Personal Care Home Administrator for g Fwd Exam Detailed
[2021-04-21] MEDS: morphine 4 mg/mL SDV 1 mL IVP (04:54)
[2021-04-21] MEDS: ondansetron 2 mg/ML SDV 2 mL 4 MG IVP (04:55)
[2021-04-21 05:19] LABS: Lactate (Lactic Acid level) 2.9 mmol/L (0.5-2.2)
[2021-04-21 05:19] LABS: Troponin(5th) Baseline 202 ng/L (0-15)
[2021-04-21 05:27] LABS: NT Pro B Type Natriuretic Pept 323 pg/mL (0-125); Procalcitonin 0.07 ng/mL (0-0.5)
[2021-04-21 05:36] LABS: SARS Covid-2 Antigen Negative (Negative)
[2021-04-21 05:36] LABS: D Dimer 0.38 ug/mIFEU (0-0.59)
[2021-04-21 05:38] LABS: Alanine Aminotransferase 26 U/L (0-41); Albumin Level 3.8 g/dL (3.5-5.2); Alkaline Phosphatase 61 IU/L (40-130); Anion Gap 15.9 (5-19); Aspartate Amino Transferase 35 U/L (0-40); Blood Urea Nitrogen 6 mg/dL (6-20); C Reactive Protein 10.2 mg/L (0.0-4.9); Calcium 8.3 mg/dL (8.5-10.5); Carbon Dioxide 25 mmol/L (22-29); Chloride 99 mmol/L (98-107); Globulin 2.4 g/dL (1.3-4.6); Glucose 146 mg/dL (65-115); Osmolality Calculated 282 mOsm/kg (285-295); Potassium 3.9 mmol/L (3.5-5.1); Sodium 136 mmol/L (136-145); Total Bilirubin 0.3 mg/dL (0.15-1.2); Total Protein 6.2 g/dL (6.6-8.7)
[2021-04-21 05:39] LABS: Creatine Phosphokinase 512 U/L (39-308)
--- NOTE | 2021-04-21 05:59 | ECG_ITS ---
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 Measurements Intervals [place] Rate: 76 P: 59 [place]: 159 QRS: 60 QRSD: 101 T: 70 QT: 396 QTc: 446 Interpretive Statements SINUS RHYTHM Compared to ECG 04/21/2021 04:06:01 ST (T wave) deviation no longer present Electronically Signed On 04-21-2021 22:07:53 CDT by Andrew Luong M.D. [id number]
[2021-04-21] MEDS: nitroglycerin 1 gm/inch oint Pkt 1 INCH TOPICAL (06:10)
[2021-04-21] MEDS: enoxaparin 100 mg/mL Syringe SUBCUT (06:36)
--- NOTE | 2021-04-21 07:03 | PC.NURSE ---
report to taylor
--- NOTE | 2021-04-21 07:06 | PC.NURSE ---
Received report assumed care. Alert and oriented. C/O chest pain, rates pain 6/10. Continue to monitor.
--- NOTE | 2021-04-21 08:49 | P.HP_ITS ---
Providers/Chief Complaint Admitting Physician: Phyllis Rodrigues MD Primary Care Provider: Juan Medina MD Chief Complaint: CHEST PAIN History of Present Illness Madi Alvarez is a 55 year old male with past medical history of diabetes mellitus, hypertension, COPD, CAD with history of stenting in 2010 and 2016 presenting today with 2 days of chest pain. Patient was in his usual state of health 2 days ago when he noticed retrosternal chest pain in the afternoon radiating into the back and left arm which was intermittent in nature, lasted until midnight and then resolved. Pain again started yesterday evening at around 4 PM and was brought him into the emergency room. Pain is partially relieved with nitro and morphine. EKG does not show any acute ST-T wave changes. Troponin baseline is at 200, 2-hour troponin at 184. Patient denies any dyspnea palpitations or syncope. He does have lower extremity swelling which she states appears to be unchanged over the past few months. Last stress test performed in 03/2020 was normal. EF 71%. D dimer negative. Review of Systems General: Reports: 10 or more systems reviewed and unremarkable except in HPI and below Const: Denies: fever(s), chills or body aches Eyes: Denies: change in vision, blurry vision or photophobia ENMT: Reports: hoarseness; Denies: throat pain, enlarged tonsils, odynophagia or nasal congestion Card: Denies: chest pain, palpitations, irregular heart rhythm, edema, swelling of feet/ankles, lightheadedness, pre-syncope, dyspnea on exertion or orthopnea Resp: Denies: dyspnea, productive cough, non-productive cough, wheezing, stridor, pain on inspiration, change in phlegm color, hemoptysis or chest congestion GI: Denies: abdominal pain, nausea, vomiting, hematemesis, coffee ground emesis, dysphagia, heartburn, diarrhea, constipation, GI cramping, change in stool character, hematochezia or melena : Denies: flank pain, dysuria, urinary frequency, urinary urgency, urinary hesitancy or hematuria Musc: Denies: neck pain, back pain, extremity pain, joint swelling, joint warmth or deformity Neuro: Denies: headache(s), numbness in extremities, weakness in extremities, sensory changes, difficulty walking, frequent falls, dizziness, vertigo, behavioral changes, Slurred speech present or seizure-like activity Psych: Denies: anxiety, depression, suicidal ideation or homicidal ideation Endo: Denies: polyuria, polydipsia, tired all the time, cold intolerance or h ot flashes Vlad/Lymph: Denies: easy bruising or easy bleeding Medications/Allergies Home Medications Medication Instructions Recorded Confirmed Last Taken Type ibuprofen 200 mg capsule 200 mg PO Q6H PRN 02/28/20 12/07/20 Unknown History montelukast 10 mg tablet 10 mg PO DAILY #90 tab 06/01/20 12/07/20 Unknown Rx erenumab-aooe 140 mg/mL 140 mg SUBCUT .MONTHLY #1 ml 07/12/20 12/07/20 Unknown Rx subcutaneous auto-injector umeclidinium 62.5 mcg-vilanterol 1 inh INHALATION DAILY #60 ea 07/24/20 12/07/20 Unknown Rx 25 mcg/actuation powdr for inhalation nitroglycerin 0.4 mg sublingual 0.4 mg SUBLINGUAL Q5M PRN #20 tab 09/08/20 12/07/20 Unknown Rx tablet blood sugar diagnostic #100 ea 09/13/20 12/07/20 Unknown Rx blood-glucose meter #1 ea 09/13/20 12/07/20 Unknown Rx lancets #100 ea 09/13/20 12/07/20 Unknown Rx budesonide 0.5 mg/2 mL suspension 0.5 mg INHALATION BID #60 ml 10/31/20 12/07/20 Unknown Rx for nebulization formoterol fumarate 20 mcg/2 mL 2 ml INHALATION Q12H #60 ml 10/31/20 12/07/20 Unknown Rx solution for nebulization ipratropium 0.5 mg-albuterol 3 mg 3 ml INHALATION Q4H PRN #180 ml 10/31/20 12/07/20 Unknown Rx (2.5 mg base)/3 mL nebulization soln revefenacin 175 mcg/3 mL solution 175 mcg INHALATION DAILY #90 ml 12/06/20 12/07/20 Unknown Rx for nebulization clopidogrel 75 mg tablet 75 mg PO DAILY #90 tab 12/07/20 12/07/20 Unknown Rx pantoprazole 40 mg tablet,delayed 40 mg PO DAILY #90 tab 12/07/20 12/07/20 Unknown Rx release albuterol sulfate 90 mcg/actuation 1 inh INHALATION QID PRN #8.5 g 03/12/21 Unknown Rx aerosol inhaler atorvastatin 80 mg tablet See Rx Instructions .ROUTE 03/12/21 Unknown Rx .COMPLEX #90 tab losartan 50 mg tablet See Rx Instructions .ROUTE 03/12/21 Unknown Rx .COMPLEX #90 tab metformin 1,000 mg tablet See Rx Instructions .ROUTE 03/12/21 Unknown Rx .COMPLEX #180 tab metoprolol tartrate 25 mg tablet See Rx Instructions .ROUTE 03/12/21 Unknown Rx .COMPLEX #90 tab Allergies Allergy/AdvReac Type Severity Reaction Status Date / Time No Known Allergies Allergy Verified 04/21/21 04:02 PFSH Acute PFSH: Medical History COPD (chronic obstructive pulmonary disease) Emphysema of lung Essential hypertension Past heart attack Surgical History History of kidney surgery Hx of heart artery stent Family History Other COPD (chronic obstructive pulmonary disease) Diabetes Heart problem Social History Smoking and tobacco status: current every day smoker cigarettes Packs smoked per day: 1.5 Years cigarettes smoked: 40 [ Other cigarette details: [id number] ] Quit status (tobacco): considering quitting Second hand smoke exposure: Yes Smoking risk assessment/counseling performed?: Yes Alcohol intake: former Desire information about substance/drug rehabilitation?: No Counseling given: No Lives independently: Yes Household members: significant other and children Housing: House Marital status: Life Partner service: No Current occupational status: previously employed 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 Pets and animals: Yes History of recent travel: No Current gender identity: Male Vitals/I&O/Wt Last Vital Signs Temp 98.4 F 04/21/21 06:37 Pulse 78 04/21/21 08:00 Resp 18 04/21/21 08:00 BP 153/85 04/21/21 08:00 Pulse Ox 92 04/21/21 08:00 Weight last 48 hrs Weight 117.934 kg Physical Exam Narrative: EXAM NARRATIVE: General: No acute distress, AO x3 HEENT: PERRLA, pupils bilaterally equal and reactive, pallors not present Chest: Normal vesicular breath sounds, no added sounds, equal good air entry bilaterally CVS: S1-S2 regular, no murmurs, no tachycardia, no gallops, no rubs Abdomen: Soft, nontender, no organomegaly, bowel sounds present Neuro: No focal deficits, no facial deformity, AO x3, power 5/5 in all limbs Extremities: B/L LE edema+ Data : 04/21/21 03:18 04/21/21 03:18 A&P Assessment and plan (1) Non-STEMI (non-ST elevated myocardial infarction): Patient with retrosternal chest pain radiating into back and left upper arm with elevated troponin raises concern for NSTEMI. Multiple risk factors for cardiac disease. Pain partially reoved with nitrates and morphine Continue aspirin 81 mg and Plavix. Also started on Lovenox 1 mg/kg every 12 hours. Continue beta-balbir, atorvastatin, losartan at home dosing Cardiology consult to assess for possibility of angiogram. Status: Acute Attestations Medical Necessity Statement*: Anticipate greater than 2 midnight admission for evaluation and management of NSTEMI Coding Level of Care Code Acute Electrophysiology Technician for [facility] Fwd Diagnoses Non-STEMI (non-ST elevated myocardial infarction) I21.4
--- NOTE | 2021-04-21 09:27 | PM.CONSULT ---
Providers/Reason For Consult Consulting Physician/Specialty*: Andrew Luong MD/ Cardiology Reason for Consult*: NSTEMI Requesting Physician: Dr Rodrigues Attending Physician: Phyllis Rodrigues MD Primary Care Provider: Juan Medina MD History of Present Illness History of Present Illness Madi Alvarez is a 55 year old male with past medical history of diabetes mellitus, hypertension, COPD, CAD with multiple stents placed in 2011 and 2016 has presented with complaints of severe substernal chest discomfort. According to the patient he started noticing chest pain about 4 PM yesterday. It has been going on and off since then. He was put on nitro that improved pain somewhat however he is still experiencing chest discomfort. His initial troponin was 200 which trended down to 184 at 2 hours. EKG does not show acute ST segment changes. He has also been experiencing cough but that is chronic for him secondary to his COPD. He has been started on Lovenox. Review of Systems General: Reports: 10 or more systems reviewed and unremarkable except in HPI and below Const: Denies: fever(s), chills or body aches Eyes: Denies: change in vision, blurry vision or photophobia ENMT: Reports: hoarseness; Denies: throat pain, enlarged tonsils, odynophagia or nasal congestion Card: Denies: chest pain, palpitations, irregular heart rhythm, edema, swelling of feet/ankles, lightheadedness, pre-syncope, dyspnea on exertion or orthopnea Resp: Denies: dyspnea, productive cough, non-productive cough, wheezing, stridor, pain on inspiration, change in phlegm color, hemoptysis or chest congestion GI: Denies: abdominal pain, nausea, vomiting, hematemesis, coffee ground emesis, dysphagia, heartburn, diarrhea, constipation, GI cramping, change in stool character, hematochezia or melena : Denies: flank pain, dysuria, urinary frequency, urinary urgency, urinary hesitancy or hematuria Musc: Denies: neck pain, back pain, extremity pain, joint swelling, joint warmth or deformity Neuro: Denies: headache(s), numbness in extremities, weakness in extremities, sensory changes, difficulty walking, frequent falls, dizziness, vertigo, behavioral changes, Slurred speech present or seizure-like activity Psych: Denies: anxiety, depression, suicidal ideation or homicidal ideation Endo: Denies: polyuria, polydipsia, tired all the time, cold intolerance or hot flashes Vlad/Lymph: Denies: easy bruising or easy bleeding Meds/Allergies Home Medications and Allergies Home Medications Medication Instructions Recorded Confirmed Last Taken Type ibuprofen 200 mg capsule 200 mg PO Q6H PRN 02/28/20 04/21/21 Unknown History umeclidinium 62.5 mcg-vilanterol 1 inh INHALATION DAILY #60 ea 07/24/20 04/21/21 Unknown Rx 25 mcg/actuation powdr for inhalation nitroglycerin 0.4 mg sublingual 0.4 mg SUBLINGUAL Q5M PRN #20 tab 09/08/20 04/21/21 Unknown Rx tablet blood sugar diagnostic #100 ea 09/13/20 04/21/21 Unknown Rx blood-glucose meter #1 ea 09/13/20 04/21/21 Unknown Rx lancets #100 ea 09/13/20 04/21/21 Unknown Rx budesonide 0.5 mg/2 mL suspension 0.5 mg INHALATION BID #60 ml 10/31/20 04/21/21 Unknown Rx for nebulization ipratropium 0.5 mg-albuterol 3 mg 3 ml INHALATION Q4H PRN #180 ml 10/31/20 04/21/21 Unknown Rx (2.5 mg base)/3 mL nebulization soln clopidogrel 75 mg tablet 75 mg PO DAILY #90 tab 12/07/20 04/21/21 Unknown Rx pantoprazole 40 mg tablet,delayed 40 mg PO DAILY #90 tab 12/07/20 04/21/21 Unknown Rx release albuterol sulfate 90 mcg/actuation 1 inh INHALATION QID PRN #8.5 g 03/12/21 04/21/21 Unknown Rx aerosol inhaler atorvastatin 80 mg tablet See Rx Instructions .ROUTE 03/12/21 04/21/21 Unknown Rx .COMPLEX #90 tab losartan 50 mg tablet See Rx Instructions .ROUTE 03/12/21 04/21/21 Unknown Rx .COMPLEX #90 tab metformin 1,000 mg tablet See Rx Instructions .ROUTE 03/12/21 04/21/21 Unknown Rx .COMPLEX #180 tab metoprolol tartrate 25 mg tablet See Rx Instructions .ROUTE 03/12/21 04/21/21 Unknown Rx .COMPLEX #90 tab Allergies Allergy/AdvReac Type Severity Reaction Status Date / Time No Known Allergies Allergy Verified 04/21/21 04:02 PFSH Acute PFSH: Medical History COPD (chronic obstructive pulmonary disease) Emphysema of lung Essential hypertension Past heart attack Surgical History History of kidney surgery Hx of heart artery stent Family History Other COPD (chronic obstructive pulmonary disease) Diabetes Heart problem Social History Smoking and tobacco status: current every day smoker cigarettes Packs smoked per day: 1.5 Years cigarettes smoked: 40 [ Other cigarette details: [id number] ] Quit status (tobacco): considering quitting Second hand smoke exposure: Yes Smoking risk assessment/counseling performed?: Yes Alcohol intake: former Desire information about substance/drug rehabilitation?: No Counseling given: No Lives independently: Yes Household members: significant other and children Housing: House Marital status: Life Partner service: No Current occupational status: previously employed 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 [] NECK: No jugular vein distension. [] HEENT: No cyanosis. No icterus. No pallor. [] HEART: Regular S1 and S2. No murmur, rub or gallop. [] LUNGS: Clear to auscultate bilaterally. [] ABDOMEN: Soft, nontender and nondistended. Positive bowel sounds. No guarding, rebound or tenderness. [] CENTRAL NERVOUS SYSTEM: Grossly nonfocal. [] EXTREMITIES: Lower extremities with 1+ edema bilaterally. Pulses palpable in the lower extremities, both dorsalis pedis and posterior tibial. [] A&P Assessment and plan (1) Non-STEMI (non-ST elevated myocardial infarction): Status: Acute (2) Essential hypertension: Status: Acute (3) Dyspnea on exertion: Status: Acute (4) Hyperlipidemia: Status: Acute Qualifiers: Hyperlipidemia type: unspecified Qualified Code(s): E78.5 - Hyperlipidemia, unspecified (5) Coronary artery disease involving autologous artery coronary bypass graft without angina pectoris: Status: Acute (6) COPD (chronic obstructive pulmonary disease): Status: Acute Qualifiers: COPD type: unspecified COPD Qualified Code(s): J44.9 - Chronic obstructive pulmonary disease, unspecified Patient has presented with non-ST elevation WA. Continue aspirin and Plavix. Patient is on Lovenox. We will plan on performing coronary angiogram with possible percutaneous coronary intervention. Keep patient n.p.o. for now. Procedure discussed with patient who agrees with proceeding with it. Risks and benefits described. Order echocardiogram. Continue trending troponins. Thank you for involving us with care of this patient. We will continue to follow. Please call with questions. Coding Level of Care Code Acute Grounds Maintenance Manager for g Fwd Diagnoses Non-STEMI (non-ST elevated myocardial infarction) I21.4 Essential hypertension I10 Dyspnea on exertion R06.00 Hyperlipidemia E78.5 Hyperlipidemia type: unspecified Coronary artery disease involving autologous artery coronary bypass graft without angina pectoris I25.810 COPD (chronic obstructive pulmonary disease) J44.9 COPD type: unspecified COPD
--- NOTE | 2021-04-21 09:59 | ECG_ITS ---
[facility] Test Date: 2021-04-21 Pat Name: Madi Alvarez Department: Room: ED Gender: Male Manager Ship: : 1965 Requested By: Quique Cortez Order Number: [id number] Nolan MD: Andrew Luong M.D. Measurements Intervals [place] Rate: 58 P: 52 CA: 148 QRS: 63 QRSD: 102 T: 80 QT: 428 QTc: 423 Interpretive Statements SINUS BRADYCARDIA WITH SINUS ARRHYTHMIA Compared to ECG 04/21/2021 06:19:37 Sinus rhythm no longer present Electronically Signed On 04-21-2021 22:07:32 CDT by Andrew Luong M.D. [email or web address] state east hospitalPendleton [place]/store/NU/[id number] f
[2021-04-21] MEDS: aspirin 81 mg EC Tablet PO (10:02)
[2021-04-21] MEDS: losartan 50 mg Tablet PO (10:02)
[2021-04-21] MEDS: clopidogrel 75 mg Tablet PO (10:02)
[2021-04-21] MEDS: pantoprazole DR 40 mg Tablet PO (10:03)
[2021-04-21] MEDS: metoprolol tartrate 25 mg Tablet PO ×2 (10:04→20:28)
[2021-04-21 10:30] LABS: Troponin 5 6HR 175.3 ng/L (0-15)
[2021-04-21 10:31] LABS: Troponin 5 6HR Delta -26.7 ng/L (0-12)
--- NOTE | 2021-04-21 10:39 | XACV_ITS ---
Exam Room: [facility] Ht: 175 cm Wt: 118 kg BSA: 2.45 m2 Gender: Male : 1965 Any Known Allergies: Other Exam Priority: Routine Procedure(s): Procedure Description: Diagnostic procedure Procedure Description: PCI procedure Procedure Description: Drug Eluting Coronary Stent Procedure Description: PTCA Procedure Description: Coronary Angiography Diagnostic Cath Status: Urgent Diagnostic Findings * Circumflex has luminal irregularities. OM 2 is medium sized vessel and is ostially occluded in a stented segment. * Right Coronary Artery has mild diffuse luminal irregularities. * Mid Left Anterior Descending: obstructive 70% in stent restenosis, MARLA: 3 flow. * Left Main has no disease. * Second Obtuse Marginal Branch Segment: total occlusion, MARLA: 0 flow. * Coronary angiography shows right dominance. PCI Status: Urgent PCI Indication: NSTE - ACS Interventional Findings * Procedure details: We engaged left main artery with a XB3.5 guide catheter. IV heparin was administered to maintain an ACT above 250 seconds. A 0.014 run-through guidewire was used to cross the stenosis in mid LAD and balloon angioplasty was performed with a 3.5x12mm NC balloon. It showed no residual stenosis and MARLA 3 flow. We then switched our attention to 2. Run-through guidewire was used to cross the totally occluded OM 2 vessel. We used 2.75 x 20 mm semicompliant balloon to predilate the stenosis. This was followed by placement of a 2.75 x 18 mm resolute Peewee drug-eluting stent. At this time final angiogram was performed that showed excellent stent expansion, MARLA-3 flow and no residual stenosis. Guidewire and guide catheter were removed. Patient left the Control Systems Eng in a stable condition. * Mid Left Anterior Descendin% stenosis treated with a MDT NC EUPHORA RX 3.45X46NK BALLOON. 0% residual stenosis, MARLA: 3 flow. * Second Obtuse Marginal Branch Segment: 100% stenosis treated with a AB TREK 2.75X20 RX BALLOON, and MDT R PEEWEE 2.75X18 JANET. 0% residual stenosis, MARLA: 3 flow. Conclusions 1. Totally occluded OM 2. 2 3. branch which was culprit for non-ST elevation RI. 4. S/p successful revascularization with JANET x1. Severe in-stent restenosis of mid LAD treated with balloon angioplasty.. 5. Mid Left Anterior Descending was treated with a Balloon. 6. Second Obtuse Marginal Branch Segment was treated with a Balloon, and Drug Eluting Stent. Recommendations * Transfer back to [facility]. * Aspirin and Plavix for at least 1 year. * High intensity statin therapy. * Outpatient cardiology follow-up in 4 weeks. Interventional RX Recommendation: PCI w/o planned CABG Diagnostic RX Recommendation: PCI w/o planned CABG Anticoagulation: Heparin Pressures Phase:Rest AO : 107 / 89 ( 99 ) @ 10:47:00 AM 109 / 83 ( 95 ) @ 10:57:00 AM Clinical Evaluation EBL: 5mL-10mL Procedural Details Procedure Consent Obtained. Exchange wire out, hand injection of the right radial artery performed. Pre-Procedure Time Out. Identified patient by full name and date of as verbalized by the patient/guarantor. Does the consent match the physician's order: Yes. Accurate & Complete Informed Consent: Yes. Inpatient/Outpatient History & Physical on Chart: Yes. If H&P is completed, is and addenduem needed: No. Visualize and Verify Site with Patient/Guarantor: N/A. Relevant Radiology Images available: Yes. The risks, benefits, and alternatives of sedation and/or procedure were discussed by physician. The patient agrees to continue. Procedure started. [facility] Clinical Fraility Score: 3: Managing Well. Control Systems Eng Indications: ACS > 24 hours. Chest Pain Symptom Assessment: Typical Angina Symptoms. Cardiovascular Instability: No. Correct patient, site and procedure confirmed by cath team. PERRLA. Strong, equal hand pulmonary disease specialist bilaterally. Lungs clear x 5 lobes. IV Site on Arrival: 18 gauge in the left anticubital. IV Fluids: 0.9% NaCl at KVO. 0 mL infused prior to laborer landscape. Pre Procedural Pulses: bilateral dorsalis pedis was 2+. Pre Procedural Pulses: bilateral posterior tibial was 2+. Pre Procedural Pulses: bilateral radial was 3+. Oxygen started at 2liters/min via nasal canula. right groin was prepped with chloroprep then draped in the usual sterile fashion. right radial was prepped with chloroprep then draped in the usual sterile fashion. Physician notified. Baseline sample Acquired. HR: 79 BPM. Patient's family unavailable. Equipment: 6F - Radial. Cardiac Cath Pack. ACIST Manifold Kit Model BT 2000. Heparinized Saline (2 units/mL), 1000 mL bag. Physician arrived. Immediate Pre-Procedure Time Out. Correct Patient: Yes; Correct Procedure: Yes; Correct Site: Yes; Correct Patient Position: Yes; Correct Supplies: Yes; Dried Flammable Prep: Yes; Blood Products Available: N/A. Lidocaine 1% infiltrated to the right radial. Arterial access obtained. A 5 polish TIG catheter in over the exchange wire. Add inventory: 260cm stiff angled glide. Exchange wire out, hand injection of the right radial artery performed. Catheter removed over the exchange wire. A 5 polish TIG catheter in over the glide wire. Glidewire out, hand injection of the right radial artery performed. Glidewire out. Multiple views taken of right coronary artery. Catheter redirected to the LCA. Multiple views taken of left coronary artery. Catheter removed over the exchange wire. diagnostic complete, starting intervention. 6 polish XB 3.5 guide catheter was inserted over the exchange wire. Runthrough guidewire was advanced through the guide catheter to lesion in the mid LAD. Inflation number : 1 A MDT NC EUPHORA RX [id number] BALLOON was prepped and advanced across the Mid LAD , then inflated to 14 ALEKSANDAR for 0:13 seconds. Inflation number: 2 The MDT NC EUPHORA RX [id number] BALLOON was reinflated across the Mid LAD, to 18 ALEKSANDAR for 0:28 seconds. balloon out. results checked. Runthrough wire redirected to the 2nd OM. Inflation number : 1 A AB TREK 2.75X20 RX BALLOON was prepped and advanced across the 2nd Ob Jazmyne , then inflated to 8 ALEKSANDAR for 0:10 seconds. Inflation number: 2 The AB TREK 2.75X20 RX BALLOON was reinflated across the 2nd Ob Jazmyne, to 12 ALEKSANDAR for 0:33 seconds. Inflation number: 3 The AB TREK 2.75X20 RX BALLOON was reinflated across the 2nd Ob Jazmyne, to 12 ALEKSANDAR for 0:17 seconds. balloon out. Inflation Number : 4 A NEREIDA Garcia PEEWEE 2.75X18 JANET -Lot Number# [id number] was prepped and advanced across the 2nd Ob Jazmyne. The stent was deployed at 14 ALEKSANDAR for 0:24 seconds. Exp. 02/18/2022. Stent balloon out over wire. Results checked. Runthrough wire out. Results checked. Guide catheter out over the exchange wire. Physician scrubbed out. TR band placed. Hemostasis obtained. Post Procedure: Pulses reassessed and unchanged. PERRLA. Strong, equal hand pulmonary disease specialist bilaterally. No VTE prophylaxis required. Medication's Wasted: Lidocaine 1% = 18 mL. Medication's Wasted: Heparin = 1000 units. Medication's Wasted: Nitro = 49.4 mg. Total IV fluids: 100 mL. A TR Band was successful obtaining hemostatsis at the Right Radial artery insertion site. PCI Indication: NSTE. Post-op diagnosis: NSTEMI. Complications: none. Estimated blood loss: 5mL-10mL. Procedure completed. Patient transferred by wheelchair to 1st floor. Vital chart was stopped. Access Site Site: Right Radial artery Sheath Size: 6 Fr Hemostasis Method: TR Band Hemostasis Success: Successful Procedure Medications Start: 11:18 AM Stop: 11:18 AM Medication: Versed Amount: 1 mg Route: I.V. Start: 11:18 AM Stop: 11:18 AM Medication: Fentanyl Amount: 50 mcg Route: I.V. Start: 11:22 AM Stop: 11:22 AM Medication: Versed Amount: 1 mg Route: I.V. Start: 11:48 AM Stop: 11:48 AM Medication: Versed Amount: 1 mg Route: I.V. Start: 11:50 AM Stop: 11:50 AM Medication: Nitrogylcerin Amount: 200 mcg Route: I.C. Start: 11:27 AM Stop: 11:27 AM Medication: Nitrogylcerin Amount: 200 mcg Route: I.A. Start: 11:52 AM Stop: 11:52 AM Medication: Fentanyl Amount: 25 mcg Route: I.V. Start: 11:56 AM Stop: 11:56 AM Medication: Fentanyl Amount: 25 mcg Route: I.V. Start: 12:06 PM Stop: 12:06 PM Medication: Nitrogylcerin Amount: 200 mcg Route: I.C. Start: 12:18 PM Stop: 12:18 PM Medication: Plavix Amount: 300 mg Route: P.O. I, the attending physician, have reviewed and verified all procedure medications. Yes, all medications given per verbal order History/Risk Factors Hypertension: Yes Dyslipidemia: No Peripheral Arterial Disease (PAD): No Myocardial Infarction (RI): Yes Obesity: Yes Renal Disease: No Tobacco Use: Current/Recent(w/in 1 year) Prior Interventions PCI: Yes CABG: No Valve Surgery: No Report Signatures Finalized by Andrew Luong MD on 04/29/2021 07:50 PM
--- NOTE | 2021-04-21 11:19 | W.PM.OPSUD ---
Surgery/Procedure H&P Update DATE OF PROCEDURE: April 21, 2021 DATE H&P PERFORMED: 04/21/21 H&P UPDATE INFORMATION: I have reviewed H&P completed within last 30 days, I have examined patient prior to procedure and No changes to prior documentation PREOP DIAGNOSIS: NSTEMI PRIMARY INDICATION FOR PROCEDURE: NSTEMI PLANNED PROCEDURE: Left heart cath with possible percutaneous coronary intervention PATIENT REASSESSED PRIOR TO SEDATION, WITH NO CHANGE NOTED: Yes PHYSICAL EXAM: alert, oriented x 3, clear to auscultation bilaterally and regular rate & rhythm AIRWAY EVAL/ANESTHESIA PLAN: ASA III, Monitored Anesthesia, Local Anesthesia, Risks, benefits & alternatives of sedation and/or procedure discussed and Patient agrees to continue as planned
--- NOTE | 2021-04-21 12:35 | PC.NURSE ---
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 Pt spO2 is at 84-86%. Applied O2 at 3 L/min via nasal cannula, spO2 is up to 92%-93%. Tr band intact. no hematoma, swelling or bleeding noted. call light provided. Hand off report from labels molder nurse to continue IVF at 75 mls/hr for 8 hrs per champagne maker. will keep monitoring.
--- NOTE | 2021-04-21 12:48 | USCV_ITS ---
Madi Alvarez Age: 55 Gender: M : 1965 Exam Date: 04/21/2021 13:17 Ordering Phys: Andrew Luong M.D ([email or web address]) Technologist: Radhika Hinds Exam Location: [facility] – [place] Indication: NSTEMI BP: 123 / 62 HR: 72 Rhythm: Sinus Technical Quality: Suboptimal MEASUREMENTS (Male / Female) Normal Values 2D ECHO LV Diastolic Diameter PLAX 4.2 cm 4.2 - 5.9 / 3.9 - 5.3 cm LV Systolic Diameter PLAX 3.1 cm LV Chamber Size 3.8 cm IVS Diastolic Thickness 1.6 cm 0.6 - 1.0 / 0.6 - 0.9 cm IVS Systolic Thickness 1.9 cm LVPW Diastolic Thickness 0.8 cm 0.6 - 1.0 / 0.6 - 0.9 cm LVPW Systolic Thickness 1.0 cm RV Chamber Size 2.3 cm LVOT Diameter 2.0 cm LV Ejection Fraction 2D Teich 53.6 % LA Diameter 3.1 cm LA Width 2.5 cm LA Height 5.0 cm RA Width 2.8 cm RA Height 4.8 cm Aorta at Sinotubular Diameter 2.7 cm M-MODE LV Diastolic Diameter MM 5.6 cm 4.2 - 5.9 / 3.9 - 5.3 cm LV Systolic Diameter MM 3.9 cm LV Ejection Fraction MM Teich 55.3 % IVS Diastolic Thickness MM 1.3 cm 0.6 - 1.0 / 0.6 - 0.9 cm IVS Systolic Thickness MM 1.3 cm LVPW Diastolic Thickness MM 1.4 cm 0.6 - 1.0 / 0.6 - 0.9 cm LVPW Systolic Thickness MM 1.5 cm RV Diastolic Diameter MM 0.7 cm Aortic Annulus Diameter 3.6 cm LA Ao Ratio MM 1.0 MV E Point Septal Separation 0.6 cm DOPPLER AV Peak Velocity 123.0 cm/s LVOT Peak Velocity 79.0 cm/s AV Area Cont Eq vti 2.3 cm squared AV Area Cont Eq pk 2.0 cm squared MV Area PHT 3.7 cm squared Mitral E to A Ratio 0.7 MV E' Velocity 33.0 cm/s Mitral E to MV E' Ratio 6.0 Mitral E to LV E' Lateral Ratio 5.5 Mitral E to LV E' Septal Ratio 6.7 TV Peak E Velocity 55.0 cm/s FINDINGS Left Ventricle Normal left ventricular size. LV systolic function is normal with EF of 55-60%. No regional wall motion abnormalities. Grade 1 diastolic dysfunction Right Ventricle The right ventricle is normal in size and function. Right Atrium The right atrium is normal in size. Left Atrium The left atrium is normal in size. Mitral Valve Structurally normal mitral valve without significant stenosis or prolapse. There is trace mitral regurgitation. Aortic Valve Structurally normal aortic valve without significant sclerosis or stenosis. There is no aortic regurgitation. Tricuspid Valve Structurally normal tricuspid valve without significant stenosis or regurgitation. Insufficient TR jet to calculate RVSP Pulmonic Valve Structurally normal pulmonic valve without significant stenosis. There is no pulmonic regurgitation. Pericardium Normal pericardium without effusion. Aorta Normal ascending aorta dimension. CONCLUSIONS LV systolic function is normal with EF of 55-60% Grade 1 diastolic dysfunction Trace mitral regurgitation Compared to prior echocardiogram from 04/12/2020, patient now has grade 1 diastolic dysfunction but otherwise no significant changes Andrew Luong MD (Electronically Signed) Final Date: 22 April 2021 19:05 S
[2021-04-21] MEDS: sodium chloride 0.9% 1,000 ML 100 ML IV (12:59)
--- NOTE | 2021-04-21 14:00 | PC.NURSE ---
TR band removal No bleeding, hematoma, or swelling noted. Radial pulse is palpable +3. Applied dressing to right wrist. activity restrictions discuss to pt post angiogram radial access. pt verbalizes understanding.
[2021-04-21 16:53] LABS: Glucose Point of Care 219 mg/dL (70-110)
--- NOTE | 2021-04-21 19:34 | PM.MISC ---
Miscellaneous Note Purpose of Documentation: Brief procedure note Note: Patient underwent coronary angiogram that revealed severe in-stent restenosis of mid LAD. He had totally occluded OM 2 which was the culprit for non-ST elevation [place]. He underwent successful revascularization of OM 2 with JANET x1. Balloon angioplasty was also performed of mid LAD. Full procedure report to follow.
--- NOTE | 2021-04-21 19:55 | PC.NURSE ---
Shift notes Frequent safety and comfort rounds continue. Orders and/or nursing care completed as indicated. Patient monitored for response to intervention and treatment(s). Education provided includes no lifting, pushing or pulling using his right arm. Monitor any unusual pain, bleeding or numbness and to notify nurse. Patient and/or eligibility services representative verbalizes understanding. Will continue to monitor.
[2021-04-21] MEDS: budesonide 0.5 mg/2 mL Neb INHALATION (19:56)
[2021-04-21 20:07] LABS: Glucose Point of Care 153 mg/dL (70-110)
[2021-04-21] MEDS: atorvastatin 40 mg Tablet 80 MG PO (20:27)
--- NOTE | 2021-04-21 21:43 | PC.NURSE ---
Shift Note Frequent safety and comfort rounds continue. Orders and/or nursing care completed as indicated. Patient monitored for response to intervention and treatment(s). Education provided includes Lipitor and Metoprolol. Patient verbalized complete understanding. Received report from JUAN Jalloh. Patient is s/p [facility] with right radial access. Dressing in place to right wrist with no s/s of bleeding or hematoma formation observed. Instructed patient on site care and restrictions. He verbalized complete understanding. Denies pain or needs. No distress observed. Will continue to monitor.
[2021-04-22 03:42] VITALS: BP 122/84; PULSE 77; RESP 12; TEMP 36.6; O2SAT 95
[2021-04-22 05:06] LABS: Alanine Aminotransferase 21 U/L (0-41); Albumin Level 3.5 g/dL (3.5-5.2); Alkaline Phosphatase 56 IU/L (40-130); Anion Gap 12.1 (5-19); Aspartate Amino Transferase 37 U/L (0-40); Blood Urea Nitrogen 7 mg/dL (6-20); Calcium 8.7 mg/dL (8.5-10.5); Carbon Dioxide 26 mmol/L (22-29); Chloride 102 mmol/L (98-107); Globulin 2.7 g/dL (1.3-4.6); Glucose 116 mg/dL (65-115); Osmolality Calculated 281 mOsm/kg (285-295); Potassium 4.1 mmol/L (3.5-5.1); Sodium 136 mmol/L (136-145); Total Bilirubin 0.3 mg/dL (0.15-1.2); Total Protein 6.2 g/dL (6.6-8.7)
--- NOTE | 2021-04-22 05:58 | PC.NURSE ---
Shift Note Frequent safety and comfort rounds continue. Orders and/or nursing care completed as indicated. Patient monitored for response to intervention and treatment(s). Education provided includes plavix and aspirin. Patient verbalized complete understanding. Dressing to right wrist remains c,d,i and no s/s of bleeding or hematoma formation observed. Patient had uneventful evening. No ectopy on telemetry noted. Denies pain or other needs. No distress observed. Will continue to monitor.
[2021-04-22 06:00] VITALS: PULSE 104
[2021-04-22 06:47] LABS: Glucose Point of Care 118 mg/dL (70-110)
[2021-04-22] MEDS: budesonide 0.5 mg/2 mL Neb INHALATION (08:11)
[2021-04-22] MEDS: albuterol 8 gm MDI 1 PUFF INHALATION (08:14)
[2021-04-22 08:16] VITALS: PULSE 94; RESP 18; O2SAT 94
[2021-04-22 08:43] VITALS: BP 133/81; PULSE 86; RESP 18; TEMP 36.4; O2SAT 96
--- NOTE | 2021-04-22 09:31 | PM.PN ---
Subjective Subjective: Interval history: Patient is doing well. Denies any complaints of chest pain, shortness of breath or palpitations. Vitals/I&O/Wt Last Vital Signs Temp 97.6 F 04/22/21 08:43 Pulse 86 04/22/21 08:43 Resp 18 04/22/21 08:43 BP 133/81 04/22/21 08:43 Pulse Ox 96 04/22/21 08:43 04/21/21 04/22/21 04/22/21 22:59 06:59 14:59 Intake Total 1240 / 1240 Output Total 2150 / 2150 1200 / 3350 Balance -910 / -910 -1200 / -2110 Weight last 48 hrs Weight 260 lb Physical Exam Narrative: EXAM NARRATIVE: GENERAL: Patient is alert, awake and oriented x3. [] NECK: No jugular vein distension. [] HEENT: No cyanosis. No icterus. No pallor. [] HEART: Regular S1 and S2. No murmur, rub or gallop. [] LUNGS: Clear to auscultate bilaterally. [] ABDOMEN: Soft, nontender and nondistended. Positive bowel sounds. No guarding, rebound or tenderness. [] CENTRAL NERVOUS SYSTEM: Grossly nonfocal. [] EXTREMITIES: Lower extremities with 1+ edema bilaterally. Pulses palpable in the lower extremities, both dorsalis pedis and posterior tibial. [] Data : 04/21/21 03:18 04/22/21 03:59 A&P Assessment and plan (1) Non-STEMI (non-ST elevated myocardial infarction): Status: Acute (2) Essential hypertension: (3) Dyspnea on exertion: (4) Hyperlipidemia: Qualifiers: Hyperlipidemia type: unspecified Qualified Code(s): E78.5 - Hyperlipidemia, unspecified (5) Coronary artery disease involving autologous artery coronary bypass graft without angina pectoris: (6) COPD (chronic obstructive pulmonary disease): Qualifiers: COPD type: unspecified COPD Qualified Code(s): J44.9 - Chronic obstructive pulmonary disease, unspecified Patient presented with non-ST elevation [place]. He underwent coronary angiogram that showed totally occluded OM 2 and severe instent restenosis of the mid LAD. He underwent successful revascularization of OM 2 with JANET x1. Balloon angioplasty of mid LAD was also performed. Continue aspirin and Plavix. LV systolic function is normal. Thank you for involving us with care of this patient. Patient is stable to be discharged from cardiology standpoint. Please call with questions. Attestations Medical Necessity Statement*: Care expected to cross 2 midnights. Coding Level of Care Code Acute Accounts Receivable Supervisor for Edmar Fwd Diagnoses Non-STEMI (non-ST elevated myocardial infarction) I21.4 Essential hypertension I10 Dyspnea on exertion R06.00 Hyperlipidemia E78.5 Hyperlipidemia type: unspecified Coronary artery disease involving autologous artery coronary bypass graft without angina pectoris I25.810 COPD (chronic obstructive pulmonary disease) J44.9 COPD type: unspecified COPD
[2021-04-22] MEDS: aspirin 81 mg EC Tablet PO (09:45)
[2021-04-22] MEDS: clopidogrel 75 mg Tablet PO (09:45)
[2021-04-22 09:46] VITALS: BP 133/81
[2021-04-22] MEDS: pantoprazole DR 40 mg Tablet PO (09:46)
[2021-04-22] MEDS: losartan 50 mg Tablet PO (09:46)
--- NOTE | 2021-04-22 09:48 | USR_ITS ---
PROCEDURE INFORMATION: Exam: US Duplex Lower Extremity Arteries Exam date and time: 04/22/2021 9:48 AM Age: 55 years old Clinical indication: Other: Left leg ulcer; Additional info: Left leg ulcer, order clarified with Dr junior (include abis) TECHNIQUE: Imaging protocol: Real-time ultrasound scan of the arteries of the bilateral lower extremities with 2-D vega scale, color Doppler flow and spectral waveform analysis. Images documented and saved. COMPARISON: CT angio chest w abd pel w con 06/19/2020 12:38 AM FINDINGS: Right common femoral artery: No occlusion or significant stenosis. Normal waveform. Right superficial femoral artery: No occlusion or significant stenosis. Normal waveform. Right popliteal artery: No occlusion or significant stenosis. Normal waveform. Right calf/foot arteries: Right ISR[place]EL 1.2 Left common femoral artery: No occlusion or significant stenosis. Normal waveform. Left superficial femoral artery: No occlusion or significant stenosis. Normal waveform. Left popliteal artery: No occlusion or significant stenosis. Normal waveform. Left calf/foot arteries: Left ISRRAEL: 1.1 Lymph nodes: Left groin soft tissues enlarged lymph nodes are seen US/CV arterial duplex [facility] [id number] IMPRESSION: 1. No stenosis or occlusion. Right or left leg 2. Left groin lymph nodes
--- NOTE | 2021-04-22 10:37 | P.DS_ITS ---
Discharge Providers Date of Admission: 04/21/21 08:44 Date of Discharge: April 22, 2021 Attending Provider at Admission: Phyllis Rodrigues MD Attending Provider at Discharge: Emir Banegas MD Consults: Cardiology: Dr. Luong Primary Care Provider: Juan Medina MD Diagnoses at Discharge Discharge Diagnosis (1) Non-STEMI (non-ST elevated myocardial infarction): Status: Acute (2) Essential hypertension: Status: Acute (3) Dyspnea on exertion: Status: Acute (4) Hyperlipidemia: Status: Acute Qualifiers: Hyperlipidemia type: unspecified Qualified Code(s): E78.5 - Hyperlipidemia, unspecified (5) Coronary artery disease involving autologous artery coronary bypass graft without angina pectoris: Status: Acute (6) COPD (chronic obstructive pulmonary disease): Status: Acute Qualifiers: COPD type: unspecified COPD Qualified Code(s): J44.9 - Chronic obstructive pulmonary disease, unspecified Reason for Visit Reason for Visit: CHEST PAIN Hospital Course Hospital Course Madi Alvarez is a 55 year old male with past medical history of diabetes mellitus, hypertension, COPD, CAD with multiple stents placed in 2010 and 2015, chronic present smoker?2 packs each day has presented with complaints of severe substernal chest discomfort. According to the patient he started noticing chest pain about 4 PM yesterday. It has been going on and off since then. He was put on nitro that improved pain somewhat however he is still experiencing chest discomfort. His initial troponin was 200 which trended down to 184 at 2 hours. EKG does not show acute ST segment changes. He has also been experiencing cough but that is chronic for him secondary to his COPD. He has been started on Lovenox. Cardiology was consulted and he underwent angiogram on April 21 that revealed severe in-stent restenosis of mid LAD. He had totally occluded OM 2 which was the culprit for non-ST elevation SD. He underwent successful revascularization of OM 2 with JANET x1. Balloon angioplasty was also performed of mid LAD. Patient tolerated the procedure well. He was counseled in detail for abstinence from smoking. Health was offered. His dose of metoprolol has been increased. Patient was complaining of chronic ulcer at the base of left big toe between second and third metatarsal as well at the dorsal area for which bilateral ABIs were done. Patient is advised to follow-up with podiatry/Dr. Centeno. There were no signs of cellulitis. He has been discharged in hemodynamically stable condition with advised to follow-up with cardiology services within next 1 week, Dr. Centeno within next 2 weeks and his primary care provider within next 10 days. Physical Exam Narrative: EXAM NARRATIVE: General: No acute distress, AO x3 HEENT: PERRLA, pupils bilaterally equal and reactive, pallors not present Chest: Normal vesicular breath sounds, no added sounds, equal good air entry bilaterally CVS: S1-S2 regular, no murmurs, no tachycardia, no gallops, no rubs Abdomen: Soft, nontender, no organomegaly, bowel sounds present Neuro: No focal deficits, no facial deformity, AO x3, power 5/5 in all limbs Extremities: B/L LE edema+, left leg?superficial chronic appearing ulcer/skin excoriation present at the base of great toe, second and third metatarsal. Discharge Data Data Completed and Pending: Completed Studies During Hospitalization Category Date Time Status XR chest 1V eliazar ble [id number] Stat Exams 04/21/21 03:58 Completed Pending at discharge Category Date Time Status SLOT ATTENDANT request for service Routin e Exams 04/21/21 10:39 Taken [facility] SARS-CoV-2 RNA Routine Lab 04/21/21 10:11 [place] [id number] Rout ine Ultrasound 04/22/21 09:48 Ordered CV. echo complete * [id number] Routine Ultrasound 04/21/21 12:48 Taken Labs from last 24 hours 04/22/21 04/22/21 04/21/21 06:40 03:59 20:02 Sodium 136 Potassium 4.1 Chloride 102 Carbon Dioxide 26 Anion Gap 12.1 BUN 7 Creatinine 0.7 GFR Calculation 118.0 Glucose 116 H POC Glucose 118 H 153 H Calculated Osmolal ity 281 L Calcium 8.7 Total Bilirubin 0.3 AST 37 ALT 21 Alkaline Phosphata se 56 Total Protein 6.2 L Albumin 3.5 Globulin 2.7 04/21/21 16:38 Sodium Potassium Chloride Carbon Dioxide Anion Gap BUN Creatinine GFR Calculation Glucose POC Glucose 219 H Calculated Osmolal ity Calcium Total Bilirubin AST ALT Alkaline Phosphata se Total Protein Albumin Globulin Addt'l Data from Hospital Stay: Laboratory Results WBC 8.8 10^3/uL (4.0- 10.0) 04/21/21 03:18 RBC 4.24 10^6/uL (4.1 -5.3) 04/21/21 03:18 Hgb 14.0 g/dL (11.7-1 6.6) 04/21/21 03:18 Hct 42.3 % (42.0-52.0 ) 04/21/21 03:18 MCV 99.8 fl (80-94) H 04/21/21 03:18 MCH 33.0 pg (28.0-34. 0) 04/21/21 03:18 MCHC 33.1 g/dL (30.0-3 6.0) 04/21/21 03:18 RDW 12.5 % (12.1-15.1 ) 04/21/21 03:18 Plt Count 255 10^3/cmm (130 -400) 04/21/21 03:18 MPV 10.1 fL (7.4-10.4 ) 04/21/21 03:18 Neut % (Auto) 60.9 % 04/21/21 03:18 Lymph % (Auto) 26.7 % 04/21/21 03:18 [place] % (Auto) 8.3 % 04/21/21 03:18 Eos % (Auto) 2.7 % 04/21/21 03:18 Baso % (Auto) 0.7 % 04/21/21 03:18 Neut # (Auto) 5.35 10^3/uL (1.8 -7.7) 04/21/21 03:18 Lymph # (Auto) 2.3 10^3/uL (0.8- 4.8) 04/21/21 03:18 [place] # (Auto) 0.7 10^3/uL (0.2- 0.9) 04/21/21 03:18 Eos # (Auto) 0.2 10^3/uL (0.0- 0.8) 04/21/21 03:18 Baso # (Auto) 0.1 10^3/uL (0.0- 0.1) 04/21/21 03:18 Nucleated RBC % (a uto) 0 % 04/21/21 03:18 Nucleated RBCs # 0.0 /100WBC 04/21/21 03:18 D-Dimer 0.38 ug/mIFEU (0- 0.59) 04/21/21 04:43 Sodium 136 mmol/L (136-1 45) 04/22/21 03:59 Potassium 4.1 mmol/L (3.5-5 .1) 04/22/21 03:59 Chloride 102 mmol/L (98-10 7) 04/22/21 03:59 Carbon Dioxide 26 mmol/L (22-29) 04/22/21 03:59 Anion Gap 12.1 (5-19) 04/22/21 03:59 BUN 7 mg/dL (6-20) 04/22/21 03:59 Creatinine 0.7 mg/dL (0.7-1. 2) 04/22/21 03:59 GFR Calculation 118.0 mL/min (90- 130) 04/22/21 03:59 Glucose 116 mg/dL (65-115 ) H 04/22/21 03:59 POC Glucose 118 mg/dL (70-110 ) H 04/22/21 06:40 Calculated Osmolal ity 281 mOsm/kg (285- 295) L 04/22/21 03:59 Lactate 2.9 mmol/L (0.5-2 .2) H 04/21/21 04:42 Calcium 8.7 mg/dL (8.5-10 .5) 04/22/21 03:59 Total Bilirubin 0.3 mg/dL (0.15-1 .2) 04/22/21 03:59 AST 37 U/L (0-40) 04/22/21 03:59 ALT 21 U/L (0-41) 04/22/21 03:59 Alkaline Phosphata se 56 IU/L (40-130) 04/22/21 03:59 Creatine Kinase 512 U/L (39-308) H* 04/21/21 03:18 Troponin T Baselin e 202 ng/L (0-15) H* 04/21/21 03:18 Troponin T 120 Min absentee-shawnee 184.0 ng/L (0-15) H 04/21/21 05:22 Delta Troponin T -18.0 ABS# (0-10) L 04/21/21 05:22 Troponin T Hi Sens 6Hr 175.3 ng/L (0-15) H 04/21/21 09:38 Troponin T Hi Sens 6Hr Delta -26.7 ng/L (0-12) L 04/21/21 09:38 C-Reactive Protein 10.2 mg/L (0.0-4. 9) H 04/21/21 03:18 NT-Pro-B Natriuret Pep 323 pg/mL (0-125) H 04/21/21 03:18 Total Protein 6.2 g/dL (6.6-8.7 ) L 04/22/21 03:59 Albumin 3.5 g/dL (3.5-5.2 ) 04/22/21 03:59 Globulin 2.7 g/dL (1.3-4.6 ) 04/22/21 03:59 Procalcitonin 0.07 ng/mL (0-0.5 ) 04/21/21 03:18 SARS-CoV-2 Ag (Rap id) Negative (Negati ve) 04/21/21 04:42 Impressions Chest X-Ray 04/21/21 03:58 IMPRESSION: 1. Mild emphysema. 2. No acute disease. Vitals: Last Vital Signs Temp 97.6 F 04/22/21 08:43 Pulse 86 04/22/21 08:43 Resp 18 04/22/21 08:43 BP 133/81 04/22/21 09:46 Pulse Ox 96 04/22/21 08:43 Discharge Plan Discharge Patient Disposition: Home Condition: Stable Prescriptions: New aspirin 81 mg Tablet,Delayed Release (Dr/Ec) 81 mg PO DAILY 30 Days Qty: 30 RF: 0 metoprolol tartrate 50 mg Tablet 50 mg PO BID@0900,2100 30 Days Qty: 60 RF: 0 Continued ibuprofen [Advil Liqui-Gel] 200 mg capsule 200 mg PO Q6H PRN (Reason: Pain) RF: 0 Anoro Ellipta 62.5-25 mcg/actuation blister with device 1 inh inhalation DAILY Qty: 60 RF: 3 (DME) blood-glucose meter Kit See Rx Instructions .ROUTE .MEDSUPPLY Qty: 1 RF: 0 (DME) blood sugar diagnostic Strip See Rx Instructions .ROUTE .MEDSUPPLY Qty: 100 RF: 1 (DME) lancets Misc See Rx Instructions .ROUTE .MEDSUPPLY Qty: 100 RF: 1 clopidogrel [Plavix] 75 mg tablet 75 mg PO DAILY Qty: 90 RF: 1 pantoprazole 40 mg tablet,delayed release (DR/EC) 40 mg PO DAILY Qty: 90 RF: 1 budesonide [Pulmicort] 0.5 mg/2 mL suspension for nebulization 0.5 mg inhalation BID Qty: 60 RF: 3 ipratropium-albuterol 0.5 mg-3 mg(2.5 mg base)/3 mL solution for nebulization 3 ml inhalation Q4H PRN (Reason: wheezing) Qty: 180 RF: 3 nitroglycerin [Nitrostat] 0.4 mg tablet, sublingual 0.4 mg SUBLINGUAL Q5M PRN (Reason: chest pain) Qty: 20 RF: 0 albuterol sulfate [ProAir HFA] 90 mcg/actuation HFA aerosol inhaler 1 inh inhalation QID PRN (Reason: shortness of breath or wheezing) Qty: 8.5 RF: 3 losartan 50 mg tablet See Rx Instructions .ROUTE .COMPLEX Qty: 90 RF: 0 atorvastatin 80 mg tablet See Rx Instructions .ROUTE .COMPLEX Qty: 90 RF: 0 metformin 1,000 mg tablet See Rx Instructions .ROUTE .COMPLEX Qty: 180 RF: 0 Discontinued metoprolol tartrate 25 mg tablet See Rx Instructions .ROUTE .COMPLEX Qty: 90 RF: 0 Discharge Orders: Discharge Order (Routine); Ordered 04/22/21 Ordered By: Emir Banegas Referrals: Juan Centeno DPM [Physician] - 2 weeks Andrew Luong M.D [Physician] - 2 weeks Juan Medina MD [Primary Care Provider] - Discharge Diet: Cardiac and Diabetic Discharge Activity: Resume usual activity Patient Instructions: Opioid Safety Activity Restrictions/Additional Instructions: Please try to abstain from smoking. Dose of metoprolol has been changed. Please follow-up with your primary care provider within next 1 week. Please follow-up with Dr. Centeno within next 2 weeks. Please follow-up with heart services within next 1 week. Discharge Attestations Time Spent in Discharge Care*: greater than 30 min Specific Discharge Activities: educating patient, educating and/or supporting family/caregiver, discussing with pcp/other providers, discussing with case sabina nunez/social workers/dc planners, documenting/other paperwork and evaluating patient/reviewing data Status at Discharge: Cognitive status at discharge: cognitively intact , Behavioral status at discharge: cooperative , Functional status at discharge: independent ambulation Overall status at discharge: patient is back to baseline Quality Metrics Clinical Quality Measures During this hospital stay, did patient experience: None Coding Level of Care Code Acute g FW DC note Diagnoses Non-STEMI (non-ST elevated myocardial infarction) I21.4 Essential hypertension I10 Dyspnea on exertion R06.00 Hyperlipidemia E78.5 Hyperlipidemia type: unspecified Coronary artery disease involving autologous artery coronary bypass graft without angina pectoris I25.810 COPD (chronic obstructive pulmonary disease) J44.9 COPD type: unspecified COPD
[2021-04-22 12:24] VITALS: BP 122/72; PULSE 72; RESP 12; O2SAT 96
--- NOTE | 2021-04-22 12:28 | PC.NURSE ---
Discharge Note Patient discharged to HOME via WHEELCHAIR accompanied by FAMILY. Discharge instructions reviewed with patient and/or publications sales representative. Mobile pharmacy medications and/or prescriptions provided. Belongings/home medications returned.
[2021-04-22 17:52] LABS: Quest SARS-CoV-2 RNA NOT DETECTED (NOT DETECTED)
== END 2021-04-22 12:00 | disposition home or self-care (01) | DRG 247 ==
LOC: ER 06:04 → ER IP 10:28 → CSU 12:15
PROVIDERS: Internal Medicine; Admitting Provider Student in an Organized Health Care Education/Training Program; Emergency Provider Emergency Medicine; PCP Registered Nurse; Visit Provider Student in an Organized Health Care Education/Training Program
DX: I21.4 Non-ST elevation (NSTEMI) myocardial infarction (principal); I25.810 Atherosclerosis of coronary artery bypass graft(s) without angina pectoris; J43.9 Emphysema, unspecified; F17.210 Nicotine dependence, cigarettes, uncomplicated; E11.9 Type 2 diabetes mellitus without complications; E78.5 Hyperlipidemia, unspecified; L89.899 Pressure ulcer of other site, unspecified stage; Z95.5 Presence of coronary angioplasty implant and graft; Z20.822 Contact with and (suspected) exposure to COVID-19; Z83.3 Family history of diabetes mellitus; Z82.49 Family history of ischemic heart disease and other diseases of the circulatory system; Z79.4 Long term (current) use of insulin; Z79.82 Long term (current) use of aspirin; Z83.6 Family history of other diseases of the respiratory system; Z71.6 Tobacco abuse counseling
CPT/HCPCS: 36415; 36416; 71045; 80053; 82550; 82962; 83605; 83880; 84145; 84484; 85025; 85378; 86140; 87426; 87635; 92921; 93005; 93306; 93454; 93925; 94640; 96372; 96374; 96375; 99285; C1725; C1769; C1874; C1887; C1894; C9600; J1644; J1650; J1815; J2250; J2270; J2405; J3010; J3490; J3535; J7030; J7626; Q9967

== ENCOUNTER → 2021-05-07 12:36 | Outpatient (BNVA) | payer OTHER, SELFPAY | PROVIDERS: PCP Registered Nurse; Visit Provider Nurse Practitioner Family | DX: I21.4 Non-ST elevation (NSTEMI) myocardial infarction (principal); R07.9 Chest pain, unspecified | CPT/HCPCS: 80048; 84484 ==

== ENCOUNTER → 2021-06-11 14:56 | Outpatient (BNVA) | payer OTHER, SELFPAY | PROVIDERS: PCP Registered Nurse; Visit Provider Registered Nurse | DX: E11.9 Type 2 diabetes mellitus without complications (principal); Z91.14 Patient's other noncompliance with medication regimen; I10 Essential (primary) hypertension | CPT/HCPCS: 83036 ==